=== PATIENT | female | born 1950 | race Caucasian/White ===

== ENCOUNTER → 2020-06-03 12:21 | Outpatient (CLI) | payer OTHER, SELFPAY ==
--- NOTE | ~2020-06-03 | MM_ITS ---
EXAMINATION: MM scrn diamond implant BI w timoteo HISTORY: Screening mammogram TECHNIQUE: Craniocaudal and mediolateral oblique 3-D tomosynthesis images with implant displacement a nd synthetic 2-D images were generated. Craniocaudal and mediolateral oblique views of the breasts wi thout implant displacement were obtained using full field digital mammography. CAD analysis was submi tted and interpreted. COMPARISON: 04/22/2019, 01/11/2018, 12/15/2016 bilateral implant digital screening mammogram examinatio ns BREAST PARENCHYMAL COMPOSITION: There is heterogeneously dense breast tissue, which may obscure small masses. FINDINGS: Status post bilateral augmentation mammoplasty. There are bilateral biopsy marker; history of bilateral benign breast biopsies. There is no evidence of suspicious mass, calcification, or architectural distortion to suggest malignancy in either breast . There has been no suspicious interval change. IMPRESSION: 1. No mammographic evidence of malignancy. 2. Recommend routine screening mammography in one year. BI-RADS Category 1: Negative Reviewed, dictated and finalized at location A. UCT SUPPORT REP
== END ==
PROVIDERS: PCP Family Medicine Adolescent Medicine; Visit Provider Nurse Practitioner Obstetrics & Gynecology
DX: Z12.31 Encounter for screening mammogram for malignant neoplasm of breast (principal)
CPT/HCPCS: 77063; 77067

== ENCOUNTER → 2021-09-03 12:17 | Outpatient (CLI) | payer OTHER, SELFPAY ==
--- NOTE | ~2021-09-03 | DEXA_ITS ---
Bone Density Report Name: MENDOZA MIRANDA Age: 71 Sex: Female Ethnicity: White Date of : 1950 Indication: osteopenia; monitoring treatment; hysterectomy;postmenopausal Referring Provider: VIJAY REECE Study: Bone densitometry was performed. Exam Date: September 03, 2021 Accession number: [id number] Bone Density: Region BMD T-score Z-score Classification AP Spine (L1-L4) 0.988 -0.5 1.8 Normal Femoral Neck (Left) 0.674 -1.6 0.4 Osteopenia Total Hip (Left) 0.737 -1.7 0.0 Osteopenia World Health Organization criteria for BMD impression classify patients as: Normal (T-score at or above -1.0), Osteopenia (T-score between -1.0 and -2.5), or Osteoporosis (T-score at or below -2.5). 10-year Fracture Risk: FRAX not reported because: Treated for osteoporosis Previous Exams: Region Exam Age BMD T-score BMD Change BMD Change Date g/cm2 vs Baseline vs Previous AP Spine(L1-L4) 09/03/2021 71 0.988 -0.5 0.076* 0.076* 01/28/2019 69 0.913 -1.2 Total Hip(Left) 09/03/2021 71 0.737 -1.7 0.004 0.004 01/28/2019 69 0.733 -1.7 *Denotes significance at 95% confidence level, LSC for AP Spine = 0.022 g/cm2, LSC for Total Hip = 0.027 g/cm2 Clinical Information Provided by Patient: Is being treated for osteoporosis Has used the following medications: Boniva (i.e. ibandronate), Vitamin D, Calcium, MTV Has the following medical conditions: Hysterectomy Patient maximum height was 60.0 Menopause Age: 38 No regular weight bearing exercise Drinks caffeinated beverages Onset of menses at age 9 Number of children 2 Impression: The patient has low bone mass, based on the Left Total Hip T-score. No significant bone loss was observed. Discussion: PATIENT UNDER TREATMENT WITH NO SIGNIFICANT BMD LOSS SINCE LAST EXAM. In an untreated patient, BMD typically declines with age. A lack of decline or gain is usually a sign that treatment is efficacious and fracture risk is reduced. It is important to ask patients whether they are taking their medications and to encourage continued and appropriate compliance with their osteoporosis therapies to reduce fracture risk. It is also important to review their risk factors and encourage appropriate calcium and vitamin D intakes, exercise, fall prevention and other lifestyle measures. Follow-Up: Consider a repeat BMD and Vertebral Fracture Assessment (VFA) exam in 2 years or sooner if medically necessary, to reassess this patient's status. Reported by: [facility] on 09/03/2021 1:01:00
--- NOTE | ~2021-09-03 | MM_ITS ---
EXAMINATION: MM scrn diamond implant BI w timoteo HISTORY: Screening mammogram TECHNIQUE: Craniocaudal and mediolateral oblique 3-D tomosynthesis images with implant displacement a nd synthetic 2-D images were generated. Craniocaudal and mediolateral oblique views of the breasts wi thout implant displacement were obtained using full field digital mammography. CAD analysis was submi tted and interpreted. COMPARISON: 06/03/2020, 04/22/2019, 01/11/2018 BREAST PARENCHYMAL COMPOSITION: There are scattered areas of fibroglandular density. FINDINGS: There is no evidence of suspicious mass, calcification, or architectural distortion to sugg est malignancy in either breast. There has been no suspicious interval change. IMPRESSION: 1. No mammographic evidence of malignancy. 2. Recommend routine screening mammography in one year. BI-RADS Category 1: Negative Reviewed, dictated and finalized at location A. RDIST
== END ==
PROVIDERS: PCP Family Medicine Adolescent Medicine; Visit Provider Family Medicine Adolescent Medicine
DX: Z12.31 Encounter for screening mammogram for malignant neoplasm of breast (principal); M85.88 Other specified disorders of bone density and structure, other site; M85.852 Other specified disorders of bone density and structure, left thigh
CPT/HCPCS: 77063; 77067; 77080

== ENCOUNTER → 2022-05-12 08:09 | Outpatient (CLI) | payer OTHER, SELFPAY ==
--- NOTE | ~2022-05-12 | US_ITS ---
EXAMINATION: US abdomen complete DATE: 05/12/2022 08:41 INDICATION: Early satiety, elevated liver enzymes TECHNIQUE: Multiple grayscale and Doppler ultrasound images of the abdomen were obtained. COMPARISON: CT, 11/07/2006 FINDINGS: The head and body of the pancreas are normal. The pancreatic tail is obscured by bowel gas. There is a 1.8 x 2.3 x 2.4 cm subcapsular hypoechoic area in the right hepatic lobe. The liver is ot herwise normal with normal echogenicity and echotexture. No surface nodularity. Normal hepatopetal fl ow in the main portal vein. The gallbladder is normal with no abnormal wall thickening, pericholecyst ic fluid or stones. The normal common bile duct measures 5 mm. There was no sonographic [place] sign. The visualized portions of the aorta and inferior vena cava are normal. The right kidney measures 9.2 x 4.1 x 3.8 cm. The left kidney measures 8.8 x 3.6 x 4.7 cm. The kidney s demonstrate normal parenchymal echogenicity. There is no hydronephrosis. The spleen is normal in ap pearance and measures 7.1 cm. IMPRESSION: 1. No sonographic correlate for the patient's symptoms. 2. Subcapsular hypoechoic lesion of the right hepatic lobe. Follow-up CT or MRI with contrast is sarah mmended. Reviewed, dictated and finalized at location B. ICAL MANAGER IMPRESSION: 1. No sonographic correlate for the patient's symptoms. 2. Subcapsular hypoechoic lesion of the right hepatic lobe. Follow-up CT or MRI with contrast is recommended.
== END ==
PROVIDERS: PCP Family Medicine Adolescent Medicine; Visit Provider Family Medicine Adolescent Medicine
DX: R63.4 Abnormal weight loss (principal); R68.81 Early satiety; R74.8 Abnormal levels of other serum enzymes
CPT/HCPCS: 76700

== ENCOUNTER → 2022-05-20 14:55 | Outpatient (CLI) | payer OTHER, SELFPAY ==
--- NOTE | ~2022-05-20 | CT_ITS ---
EXAMINATION: CT abdomen w con INDICATION: Liver lesion on ultrasound TECHNIQUE: Computed tomographic images of the abdomen were obtained after the administration of 100 c c of Omnipaque 350 intravenous contrast. The dose-length product (DLP) was 127.63 mGy-cm. Automated e xposure control and iterative reconstruction technique were employed. COMPARISON: Ultrasound, 05/12/2022 FINDINGS: Minimal dependent atelectasis is present in the lung bases. Bilateral breast implants are n oted. The heart size is normal. There is a 2.3 cm mass of the liver dome with interrupted peripheral nodular enhancement, consistent with a hemangioma. The liver is diffusely low in attenuation when com pared with the spleen, consistent with hepatic steatosis. The spleen, pancreas, gallbladder, adrenal glands, and kidneys are normal. There are no pathologically enlarged abdominal lymph nodes. There is no free intraperitoneal gas or evidence of bowel obstruction. There is moderate lumbar spondylosis. IMPRESSION: 1. Hemangioma of the liver corresponding to the ultrasound lesion in question. Reviewed, dictated and finalized at location F. VISION MECHANIC
[2022-05-20 15:14] LABS: Estimated Glomerular Filt Rate 54
== END ==
PROVIDERS: PCP Family Medicine Adolescent Medicine; Visit Provider Family Medicine Adolescent Medicine
DX: R74.8 Abnormal levels of other serum enzymes (principal); R93.2 Abnormal findings on diagnostic imaging of liver and biliary tract
CPT/HCPCS: 74160; Q9967

== ENCOUNTER → 2022-11-22 11:11 | Outpatient (CLI) | payer MEDICARE, SELFPAY ==
--- NOTE | ~2022-11-22 | MM_ITS ---
EXAMINATION: MM scrn diamond implant BI w timoteo HISTORY: Screening mammogram TECHNIQUE: Craniocaudal and mediolateral oblique 3-D tomosynthesis images with implant displacement a nd synthetic 2-D images were generated. Craniocaudal and mediolateral oblique views of the breasts wi thout implant displacement were obtained using full field digital mammography. CAD analysis was submi tted and interpreted. COMPARISON: 09/03/2021, 06/03/2020, 04/22/2019, 12/14/2015 BREAST PARENCHYMAL COMPOSITION: There are scattered areas of fibroglandular density. FINDINGS: There is no evidence of suspicious mass, calcification, or architectural distortion to sugg est malignancy in either breast. There has been no suspicious interval change. IMPRESSION: 1. No mammographic evidence of malignancy. 2. Recommend routine screening mammography in one year. BI-RADS Category 1: Negative Reviewed, dictated and finalized at location A.
== END ==
PROVIDERS: PCP Family Medicine Adolescent Medicine; Visit Provider Family Medicine Adolescent Medicine
DX: Z12.31 Encounter for screening mammogram for malignant neoplasm of breast (principal)
CPT/HCPCS: 77063; 77067

== ENCOUNTER 2022-12-23 10:59 | Emergency (ER) | payer MEDICARE, SELFPAY ==
--- NOTE | ~2022-12-23 | XR_ITS ---
[XR ribs LT 2V w CXR 2V ] INDICATION: Left rib pain TECHNIQUE: Frontal projection of the upper left ribs, frontal projection of the lower left ribs, obli que projection of all the left ribs, frontal inspiratory chest x-ray for interpretation. FINDINGS: There are acute left sixth, seventh and eighth rib fracture. No significant effusion. No pn eumothorax. Borderline heart size. There are no soft tissue abnormality seen. The lungs are clear. IMPRESSION: 1: Acute left sixth, seventh and eighth rib fractures. Reviewed, dictated and finalized at location []
[2022-12-23 11:09] VITALS: BP 150/67; PULSE 62; RESP 12; TEMP 37.2; O2SAT 97
[2022-12-23 11:11] VITALS: BP 150/67; PULSE 62; RESP 12; TEMP 37.2; O2SAT 97
--- NOTE | 2022-12-23 11:13 | ED.FALL ---
HPI - Fall General Chief Complaint: Fall Stated Complaint: Flank Pain Time Seen by Provider: 12/23/22 11:03 Source: patient Mode of arrival: ambulatory Limitations: no limitations History of Present Illness HPI Narrative: Patient 72-year-old female who presents with left rib pain after falling Monday. Patient states coughing and bending makes pain worse. Patient states she is still able to take a full deep breath. Denies coughing up blood. States there is bruising and it is tender to touch. Denies hitting head on fall, or pain anywhere else on the body. Denies any difficulty breathing. Related Data Allergies Allergy/AdvReac Type Severity Reaction Status Date / Time cats AdvReac Unknown Unknown Uncoded 12/20/22 13:29 Review of Systems Review of Systems: All systems reviewed & are unremarkable except as noted in HPI and below Constitutional: Constitutional: Denies body ache(s), Denies chills, Denies fatigue, Denies fever(s), Denies headache(s), Denies malaise and Denies weakness Eyes: Eyes: Denies blurry vision, Denies irritation and Denies loss of vision ENT: Denies otalgia, Denies headache(s), Denies nasal discharge, Denies sinus pain and Denies sore throat Cardiovascular: Cardiovascular: Denies chest pain, Denies irregular heart rhythm and Denies dyspnea Respiratory: Respiratory: Reports pain with cough and Denies dyspnea Gastrointestinal: Gastrointestinal: Denies abdominal pain, Denies melena, Denies hematochezia, Denies diarrhea, Denies nausea and Denies vomiting Musculoskeletal: Musculoskeletal: Denies back pain, Denies myalgias and Denies arthralgias Integumentary/Breasts: Skin/Breast: Denies pruritus and Denies rash Neurologic: Denies headache(s), Denies loss of vision and Denies weakness Psychiatric: Psychiatric: Reports no additional psychiatric complaints Endocrine: Endocrine: Denies fatigue PMFSH Surgical History Surgical History History of hysterectomy (1987) History of partial surgical removal of colon (2000) Removed section of colon for Polyp History of total right hip replacement (01/2019) Family History Family History Father Lung cancer Mother Diabetes mellitus Hypertension Sibling Hypertension Social History Social History Smoking status: Never smoker Comments At time of signature, agree with nursing past medical, surgical, social and family history. There is no relevant family history pertinent to the presenting complaint. Exam Const: General: cooperative, healthy appearing, comfortable, no acute distress and well nourished Nutritional Appearance: well nourished Orientation/consciousness: patient oriented x3 Limitations: no limitations HENMT: Head: normal to inspection, normocephalic and atraumatic Ears: hearing grossly normal bilaterally and external ears normal Face/Nose/Sinus: Normal external nose present, normal facial exam and face symmetric Face and sinus: normal facial exam and face symmetric Mouth: Yes lip normal Eyes: General: appearance normal, both eyes and all related structures Alignment and Position: alignment normal and position normal Periorbital: periorbital findings normal Eyelids: eyelids normal Pupils: Equal, round and reactive pupils present EOM: EOMs intact bilaterally Neck: Neck: normal visual inspection, full ROM and supple Chest: Chest palpation & inspection: abnormal inspection of the chest other (Ecchymosis to left mid to lower ribs ), no crepitus and tenderness rib (6-8 left) Resp: Effort & Inspection: normal respiratory effort and able to speak in complete sentences Auscultation: clear to auscultation bilaterally, no crackles, no rales, no rhonchi and no wheezes Cardio: Rate: regular rate Rhythm: regular rhythm Heart sounds: S1 normal heart sound present a
== END 2022-12-23 12:16 | disposition home or self-care (01) ==
PROVIDERS: Emergency Provider Nurse Practitioner Family; PCP Family Medicine Adolescent Medicine
DX: S22.42XA Multiple fractures of ribs, left side, initial encounter for closed fracture (principal); W19.XXXA Unspecified fall, initial encounter; Z96.641 Presence of right artificial hip joint
CPT/HCPCS: 71046; 71100; 99213; G0463

== ENCOUNTER → 2023-01-11 13:52 | Outpatient (CLI) | payer MEDICARE, SELFPAY ==
--- NOTE | ~2023-01-11 | MR_ITS ---
EXAMINATION: MR pelvis wo con DATE: 01/11/2023 14:36 INDICATION: Severe left sacral pain TECHNIQUE: Magnetic resonance imaging (MRI) of the pelvis was performed without intravenous contrast. A marker was placed over the mass. Sequences included axial, sagittal and coronal T1-weighted FSE a nd fluid sensitive FSE STIR. COMPARISON: Radiographs dated 02/25/2019 FINDINGS: Metallic magnetic field artifact associated with a right total hip arthroplasty. Osteonecrosis at the anterosuperior and superior aspect of the left femoral head with prominent marrow edema throughout t he left femoral head and neck. There is linear increased fluid signal underlying a portion of the art icular surface at the apex of the femoral head. There is subtle irregularity to the cortical margin. The combination of both findings would be consistent with early collapse of the articular surface wi th a loose fragment in situ. There is moderate sized left hip joint effusion with synovitis. There is at least moderate osteoarthritis at the left hip with additional subarticular edema-like signal suggs ge at the superior left acetabular labrum. 2 mm anterolisthesis L4 on L5 with moderate associated disc height loss. Mild disc height loss at L5- S1. Severe bilateral facet osteoarthritis at L4-L5 and L5-S1. Mild bilateral sacroiliac osteoarthriti s. No associated effusion, synovitis or erosions to suggest inflammatory sacroiliitis. The uterus is not identified and has likely been surgically resected. There is likely reactive muscular edema in th e abductor musculature between the left pubic rami and the left femoral head. No pathologically enlar ged pelvic or inguinal lymphadenopathy. IMPRESSION: 1. Osteonecrosis at the left femoral head with beginning collapse of the cephalad articular surface w ith loose fragment in situ and likely secondary moderate left hip osteoarthritis and moderate sized l ikely reactive left hip joint effusion. 2. Mild bilateral sacroiliac osteoarthritis without findings of inflammatory sacroiliitis. 3. Right total hip arthroplasty. 4. Moderate lower lumbar spondylosis. Reviewed, dictated and finalized at location A. IMPRESSION: 1. Osteonecrosis at the left femoral head with beginning collapse of the cephal ad articular surface with loose fragment in situ and likely secondary moderate left hip osteoarthritis and moderate sized likely reactive left hip joint effus ion. 2. Mild bilateral sacroiliac osteoarthritis without findings of inflammatory sa croiliitis. 3. Right total hip arthroplasty. 4. Moderate lower lumbar spondylosis.
== END ==
PROVIDERS: PCP Family Medicine Adolescent Medicine; Visit Provider Orthopaedic Surgery
DX: M87.859 Other osteonecrosis, unspecified femur (principal); M16.0 Bilateral primary osteoarthritis of hip; M47.896 Other spondylosis, lumbar region
CPT/HCPCS: 72195

== ENCOUNTER 2023-01-19 09:53 | Outpatient (CLI) | payer MEDICARE, SELFPAY ==
--- NOTE | 2023-01-19 11:01 | ECG_ITS ---
Measurements Intervals [place] Rate: 67 P: 50 MD: 149 QRS: 45 QRSD: 78 T: 47 QT: 379 QTc: 400 Interpretive Statements SINUS RHYTHM BORDERLINE ST-T WAVE ABNORMALITY- ANTERIOR LEADS BASELINE ARTIFACT- I, III, AVR, AVL, AVF, V1-V6 BORDERLINE ECG COMPARED TO ECG 01/30/2019 10:57:52 ST (T WAVE) DEVIATION NOW PRESENT Electronically Signed On 01-19-2023 11:32:13 CDT by Felix Anderson D.O.
[2023-01-19 11:36] LABS: Basophils Absolute Auto 0.1 K/mm3 (0.0-0.1); Basophils Percent Auto 0.9 % (0.2-1.2); Eosinophils Absolute Auto 0.1 K/mm3 (0-0.3); Eosinophils Percent Auto 1.2 % (0-4.4); Hematocrit 38.2 % (37.0-47.0); Hemoglobin 12.9 g/dL (12.0-15.0); Immature Granulocyte Absolute 0.01 K/mm3 (0.00-0.031); Immature Granulocyte Percent A 0.2 % (0-0.5); Lymphocytes Absolute Auto 1.73 K/mm3 (0.9-3.2); Lymphocytes Percent Auto 29.7 % (18.3-44.2); Mean Corpuscular HGB Conc 33.8 g/dl (32-36); Mean Corpuscular Hemoglobin 34.2 pg (26-34); Mean Corpuscular Volume 101.3 fl (80-100); Mean Platelet Volume 9.1 fl (7.4-10.4); Monocytes Absolute Auto 0.5 K/mm3 (0.1-0.6); Monocytes Percent Auto 8.4 % (2.6-8.5); Neutrophils Absolute Auto 3.5 K/mm3 (1.3-6.7); Neutrophils Percent Auto 59.6 % (45.5-73.1); Platelet Count Result 194 k/mm3 (150-375); Red Blood Count 3.77 M/mm3 (4.2-5.4); Red Cell Distribution Width 13.1 % (11.5-14.5); White Blood Count 5.8 K/mm3 (4.5-10.0)
[2023-01-19 11:48] LABS: Urine Cotinine NEGATIVE
[2023-01-19 11:49] LABS: Albumin Level 4.8 g/dL (3.5-5.1); Anion Gap 8 mmol/L (8-16); Blood Urea Nitrogen 10 mg/dL (7-17); Calcium 9.5 mg/dL (8.4-10.2); Carbon Dioxide 26 mmol/L (22-30); Chloride 97 mmol/L (98-107); Estimated Glomerular Filt Rate > 60; Glucose 92 mg/dL (65-110); Potassium 4.3 mmol/L (3.4-5.0); Sodium 131 mmol/L (137-145)
[2023-01-19 11:52] LABS: Hemoglobin A1C 4.8 % (<5.7)
[2023-01-19 12:13] LABS: Vitamin D 25 Hydroxy 34.5 ng/mL
== END 2023-01-19 09:54 | disposition home or self-care (01) ==
LOC: ANHSURGERY 09:58
PROVIDERS: PCP Family Medicine Adolescent Medicine; Visit Provider Orthopaedic Surgery
DX: M87.00 Idiopathic aseptic necrosis of unspecified bone (principal); Z01.818 Encounter for other preprocedural examination; R94.31 Abnormal electrocardiogram [ECG] [EKG]
CPT/HCPCS: 80048; 80307; 82040; 82306; 83036; 85025; 86850; 86900; 86901; 87081; 93005

== ENCOUNTER 2023-01-30 00:41 | Day surgery (SDC) | payer MEDICARE, SELFPAY ==
[2023-01-19 10:05] VITALS: BMI 24.7
--- NOTE | 2023-01-19 10:31 | PC.NURSE ---
Report to the Outpatient Waiting Room, entrance under the green pavilion located off [facility], at time _0600 on date ___01/30/23____. Planned Procedure Time: __0730 . Time changes happen often and if your time is changed the preop area will call you the afternoon before. - You and your visitor will be asked to self-screen and do not enter if you have any COVID symptoms. - A mask is optional within the hospital at this time. Patients may have clear liquids (water, carbonated beverages, clear teas, apple juice) until 3 hours prior to surgery with a maximum of 20 ounces. - No food from midnight until time of surgery - Infants may have breast milk until 4 hours before surgery, infant formula 6 hours prior to surgery. - Children will be allowed to drink immediately following surgery. If applicable, please bring a bottle or sippy cup to assist with drinking. Juice, water, soda, and popsicles are readily available. For infants on formula, please bring formula the day of surgery. Pacifiers are allowed. Take the following medications with a SIP of water the morning of surgery: ____GABAPENTIN,PROPRANOLOL DO NOT STOP ANY OF YOUR OTHER PRESCRIPTION MEDICATIONS PRIOR TO SURGERY ?EXCEPT THE FOLLOWING Medications to discontinue per physician ALL VITAMINS 3 DAYS PRE OP.LAST DOSE 01/26/23 Please no make-up, nail mongolian, hairspray, perfume, deodorant, or body powder the day of surgery. No jewelry (including any body piercings) or valuables the day of surgery, leave them at home. Please take a shower or bath the night before, or the morning of, surgery with an antibacterial soap. Wear comfortable, loose fitting clothing. Children are encouraged to wear pajamas. - Jewelry must be removed prior to entering the operating room. Rings and piercings that are not removed may be cut off. - The hospital will not accept responsibility for valuables. - Please leave all valuables, including medications, at home the day of surgery. If you are going home after surgery, a licensed hog driver must drive you home. - NO public transportation without another adult if you receive anesthesia. - We recommend that an adult stay with you for 24 hours following discharge. - We also recommend that you do not drive, make important decision, drink alcoholic beverages, or take any drugs that were not prescribed by your health care provider for at least 24 hours after your discharge time. Follow any additional instructions given to you from your surgeon. If you or anyone in your household have experienced Covid symptoms in the past week, please notify your surgeon or the nurse liaison at the phone number below for possible testing. VERBAL AND WRITTEN instructions given to ___PATIENT and asked if any additional questions and then verbalized understanding. Patient advised to call surgeon office or pre surgery nurse liaison [phone] if any additional questions.
[2023-01-19 10:58] VITALS: BP 147/87; PULSE 66; RESP 18; TEMP 36.7; O2SAT 97
--- NOTE | 2023-01-27 12:04 | PM.IMHP ---
H&P: HPI History of Present Illness Date/Time: 01/27/23 12:04 Chief Complaint: Stage IV avascular necrosis left hip Narrative: 72-year-old female presents today for left anterior total hip arthroplasty. She underwent total hip arthroplasty on her right hip in January of 2019 and did well with that. Over the course of last year she has been developing more and more symptoms in left hip. Predominantly over the anterior lateral aspect of the hip. She was seen in the office on 01/16 x-rays that time showed severe osteoarthritis with fragmentation of the superior femoral head. She did have an MRI scan of the hip which did show the fragmentation in the superior femoral head. There was some concern due to her symptoms about possible sacral fractures but there was none seen on the MRI scan. Patient is miserable with the pain in the left hip and feels she is ready proceed with total hip arthroplasty on the left. Review of Systems Review of Systems: All systems reviewed & are unremarkable except as noted in HPI and below PMFSH Surgical History Surgical History History of hysterectomy (1987) History of partial surgical removal of colon (2000) Removed section of colon for Polyp History of total right hip replacement (01/2019) Family History Family History Father Lung cancer Mother Diabetes mellitus Hypertension Sibling Hypertension Social History Social History Smoking status: Never smoker Additional smoking assessment comments: DENIES ANY FORM OF TOBACCO USE Alcohol intake: current Drinks per week: 10 Living arrangements: alone Spiritual care concerns: No Meds Home Medications and Allergies Home Medications Medication Instructions Recorded Confirmed Type ibandronate 150 mg tablet See Rx Instructions .Route 05/04/22 01/19/23 Rx .COMPLEX #3 tabs gabapentin 300 mg capsule 300 mg PO BID #60 caps 09/01/22 01/19/23 Rx propranolol 160 mg capsule,24 160 mg PO DAILY #90 caps 11/03/22 01/19/23 Rx hr,extended release calcium carbonate 500 mg-vitamin 1 tablet PO BID 01/02/23 01/19/23 History D3 10 mcg (400 unit) tablet (Calcium 500 + D) acetaminophen 500 mg capsule 1,000 mg PO Q6H PRN Pain 01/19/23 01/19/23 History Allergies Allergy/AdvReac Type Severity Reaction Status Date / Time cats AdvReac Unknown Difficulty Uncoded 01/19/23 10:07 Breathing Exam Narrative: 72-year-old female alert pleasant. She is 4 ft 11 and 124 lb her BMI is 25. She walks with a severe limp. She has moderate tenderness over the greater trochanter and moderate tenderness over the left sacral ala. She has normal muscle strength in all muscle groups left lower extremity. She has normal abduction strength in lateral position. She cannot fully straighten the hip while supine due to pain in the anterior lateral hip and groin. Internal rotation is to 0 external rotation to 15 both of which cause her severe pain that radiates the posterior superior iliac spine. No edema in lower extremities. 2+ dorsalis pedis And posterior tibial pulse. Skin is all normal around the hip and groin crease. 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 She is miserable with the pain and feels she is ready to proceed with total hip arthroplasty at this point. Surgical procedure as well as the risks and complications were reviewed all questions were answered and we will proceed. She will avoid aspirin ibuprofen products 1 week prior surgery. She
[2023-01-30] VITALS (17 sets, daily range): BP systolic 121–164; BP diastolic 49–95; PULSE 59–76; RESP 13–18; TEMP 35.5–37; O2SAT 91–100
--- NOTE | ~2023-01-30 | XR_ITS ---
EXAMINATION: XR surgery orthopedic DATE: 01/30/2023 11:39 INDICATION: Anterior approach left total hip arthroplasty TECHNIQUE: Single fluoroscopic image of the left hip was obtained during procedure performed by Dr. Jericho rahman. Radiologist was not present for the imaging or procedure. The amount of fluoroscopy time used during this procedure was 1.0 minutes. COMPARISON: None. FINDINGS: Single image demonstrates a noncemented left total hip arthroplasty which appears well seated in near -anatomic alignment. No fracture. Expected lucent soft tissue gas at the operative bed. IMPRESSION: 1. Expected appearance during left total hip arthroplasty. See procedure note for further detail. Reviewed, dictated and finalized at location B. IMPRESSION: 1. Expected appearance during left total hip arthroplasty. See procedure note f or further detail.
--- NOTE | ~2023-01-30 | XR_ITS ---
EXAMINATION: XR hip LT 1V w AP pelvis DATE: 01/30/2023 11:39 INDICATION: Left total hip arthroplasty TECHNIQUE: Anteroposterior and cross-table lateral views of the left hip were obtained. COMPARISON: Radiographs dated 02/25/2019 FINDINGS: Bilateral noncemented total hip arthroplasties which appear well-seated in near-anatomic alignment, u nchanged on the right and no replaced on the left. Surgical drain and expected soft tissue gas at the operative bed. No fractures. Mild osteoarthritis at the bilateral sacral iliac joints. Several phleb oliths in the pelvis. IMPRESSION: 1. Bilateral total hip arthroplasties, newly placed on the left and negative for postoperative purpos es. Reviewed, dictated and finalized at location B. IMPRESSION: 1. Bilateral total hip arthroplasties, newly placed on the left and negative fo r postoperative purposes.
[2023-01-30] MEDS: ACETAMINOPHEN 500 MG TABLET 1000 MG PO ×3 (06:12→19:55)
[2023-01-30] MEDS: LACTATED RINGERS 1,000 ML 30 ML IV CONT ×2 (06:47→11:10)
[2023-01-30] MEDS: VANCOMYCIN 750 MG/NS 250 ML BAG 250 MG IVPB (06:48)
[2023-01-30] MEDS: TRANEXAMIC ACID 1,000MG/ISO100 1,000 MG/100 ML BAG 200 MG IVPB (07:00)
[2023-01-30 07:06] LABS: Sodium 130 mmol/L (137-145)
--- NOTE | 2023-01-30 07:13 | P.PNAN_ITS ---
Anes - Initial Pre Proc Eval Procedure: Operation Date: 01/30/23 07:30 Proposed Procedures p Left Total Hip Arthroplasty, Anterior Approach - Cornelio Kat MD Date/Time: 01/30/23 07:13 Surgeon: Cornelio Kat MD Pre Op Diagnosis: AVN left hip Patient Data Age: 73 Gender: F Height: 1.51 m Weight: 55.5 kg Last Vital Signs Temp 97.1 F L 01/30/23 06:18 Pulse 62 01/30/23 06:18 Resp 16 01/30/23 06:18 BP 164/75 H 01/30/23 06:18 Pulse Ox 100 01/30/23 06:18 O2 Del Method Room Air 01/30/23 06:18 Allergies Allergy/AdvReac Type Severity Reaction Status Date / Time cats AdvReac Unknown Difficulty Uncoded 01/30/23 06:10 Breathing Home Medications Medication Instructions Recorded Confirmed Type ibandronate 150 mg tablet See Rx Instructions .Route 05/04/22 01/30/23 Rx .COMPLEX #3 tabs gabapentin 300 mg capsule 300 mg PO BID #60 caps 09/01/22 01/30/23 Rx propranolol 160 mg capsule,24 160 mg PO DAILY #90 caps 11/03/22 01/30/23 Rx hr,extended release calcium carbonate 500 mg-vitamin 1 tablet PO BID 01/02/23 01/30/23 History D3 10 mcg (400 unit) tablet (Calcium 500 + D) acetaminophen 500 mg capsule 1,000 mg PO Q6H PRN Pain 01/19/23 01/30/23 History Laboratory Tests 01/30/23 06:47 Sodium 130 L mmol/L (137-145) Patient hx anesthesia problems: none Family hx anesthesia problems: none Results Review: All pre-operative results and documents have been reviewed as part of the pre- operative evaluation. [facility], [facility] Surgical History Surgical History History of hysterectomy (1987) History of partial surgical removal of colon (2000) Removed section of colon for Polyp History of total right hip replacement (01/2019) Family History Family History Father Lung cancer Mother Diabetes mellitus Hypertension Sibling Hypertension Social History Social History Smoking status: Never smoker Additional smoking assessment comments: DENIES ANY FORM OF TOBACCO USE Alcohol intake: current Drinks per week: 10 Living arrangements: alone Spiritual care concerns: No Anes - Eval Final PreProcedure Day of Procedure 01/30/23 07:13 Patient weight: normal Heart: regular rate and rhythm Lungs: clear to auscultation Airway: Mallampati scale class III Neurological: alert and oriented Last oral intake: >/= 8 hours ASA classification: III Emergent: no Anesthetic plan: proceed Anesthesia type and monitoring: general ETT and standard monitoring Results Review: All pre-operative results and documents have been reviewed as part of the pre- operative evaluation. Informed Consent: The patient's anesthetic plan and its attendant risks and benefits were discussed with the patient/family/POA. Questions were solicited and answers provided to the satisfaction of the patient/family/POA.
--- NOTE | 2023-01-30 07:15 | WPDHPUPDATE1 ---
History and Physical Update Update Date/Time: 01/30/23 07:15 History and Physical has been reviewed, including an updated exam of the patient. There are NO changes in the patient's condition. Risks, benefits, and alternatives have been discussed and questions answered. Patient agrees to proceed with procedure.
[2023-01-30] MEDS: ceFAZolin 2 GM/D5W 50 ML 2 GM/50 ML BAG IVPB (07:39)
[2023-01-30] MEDS: ceFAZolin SODIUM 1 GM VIAL 3 GM (08:25)
[2023-01-30] MEDS: ceFAZolin SODIUM 1 GM VIAL IV PUSH (10:34)
[2023-01-30] MEDS: TRANEXAMIC ACID 1,000 MG/10 ML AMPUL 1000 MG IV PUSH (10:35)
--- NOTE | 2023-01-30 11:05 | P.OP_ITS ---
Procedure Note - Detailed Date of Procedure 01/30/23 Pre-op Diagnosis AVN left hip Post-op Diagnosis Same Procedure Performed Left total hip arthroplasty direct anterior approach Surgeon Cornelio Kat MD [employer] Supervisor Thomas Anesthesia General Description of Procedure Patient was brought to the operating room and general anesthesia was administered. She received weight based vancomycin 2 g of Ancef 1 g of tranexamic acid preoperatively. The boots were applied to the feet after application of padding to the feet and [facility] and the left hip prepped draped usual fashion. A 10 cm longitudinal incision was made starting 3 cm lateral 2 cm distal to the ASIS. Dissection was carried down to the fascia over the tensor fascia andrew which was longitudinally incised elevated off the anterior 50% of the tensor fascia andrew muscle. Interval between the rectus femoris and tensor developed and crossing branches of ascending lateral femoral circumflex vessels were ligated with suture divided. A retractor was placed anterior to the hip capsule the hip abducted internally rotated and the gluteus minimus elevated off the lateral hip capsule. Inverted T capsulotomy was performed. Femoral neck osteotomy made according to preoperative templating. The head measured to 40.5 mm in diameter. There was chondral collapse of the superior segment where she had the insufficiency fracture and underlying osteonecrosis. The remaining articular cartilage was c uretted from the acetabulum and the labrum excised. The acetabulum was medialized with a 40 mm Reamer under fluoroscopic guidance. We reamed up to 45 mm and a 45 trial was too tight to fully seat due to a 1 mm rim at the introitus of the acetabulum we carefully reamed with a 46 in the 46 trial sit tightly and fully. We impacted the 46 Biomet G7 cup and achieved full seating in a tight fit placed at 40? of abduction and anteversion such at the anterior shell was a mm under the anterior rim of the acetabulum. A single screw was placed in the ilium and the 32 inner diameter acetabular liner was placed. The femur was exposed with external rotation extension using the table hook. We did not have to release the interval between conjoined tendon and piriformis which was left intact. The femur was broached up to a size 2 we trialed and the +5 head standard neck I felt the the height was about 2 or 3 mm too tall. We calcar planed countersunk the broach another 3 mm and there was a tiny bit of wiggle on the broach the torsional testing. We broached up to a size 3 which is little bit hard the seat in there was complete torsional stability. We trialed 1 more time with the +5 and was found equal leg lengths appropriate soft tissue tension and stability. Final calcar planing was performed and we impacted the size 3 Actis stem which seated fully an excellent fit. We trialed with the +5 head which gave appropriate soft tissue tension and stability in the real +5 ceramic head was impacted on the clean and dried trunnion. Hip reduced stability reconfirmed. The capsular flaps were reapproximated superiorly with 2. Vicryl local anesthetic cocktail injected the soft tissues. The fascia repaired with running 1. Vicryl a drain in the subcu skin with 2-0 Vicryl and glue EBL was 3 cc. 100 cc given back as Cell Saver. One more g of Ancef and 1 more g of TXA were given at time wound closure. No known complications. I felt that we could allow her to be weight-bearing as tolerated based on the bone quality and fixation of the implants. She was transferred postop recovery room stable condition.
[2023-01-30] MEDS: fentaNYL CITRATE INJ (*CRX) 100 MCG/2 ML VIAL 25 MCG IV PUSH ×8 (11:20→11:43)
--- NOTE | 2023-01-30 11:20 | PM.OP ---
Procedure Note - Brief Procedure Note - Brief Date of procedure: 01/30/23 AVN left hip Procedure performed: Left anterior total hip arthroplasty Surgeon: REBECCA Erwin Findings: 73-year-old female who underwent left anterior total hip arthroplasty on 01/30. I was involved in the procedure including positioning the patient on the OR table is well as 1st assist the through the time of surgery. Total time spent was 3hours Urine output (mL): -100.0
[2023-01-30] MEDS: HYDROmorphone HCL INJ (*CRX) 1 MG/ML SYR 0.5 MG IV PUSH ×3 (11:50→12:27)
[2023-01-30] MEDS: SODIUM CHLORIDE 0.9% IV 1,000 ML 125 ML IV CONT (15:37)
[2023-01-30] MEDS: SENNA/DOCUSATE SODIUM TABLET 2 TAB PO (17:47)
[2023-01-30] MEDS: GABAPENTIN 300 MG CAPSULE PO (17:47)
[2023-01-30] MEDS: oxyCODONE HCL (*CRX) 5 MG TAB IR PO ×2 (17:47→21:16)
[2023-01-30] MEDS: ceFAZolin 1 GM/NS 50 ML 1 GM/50 ML BAG IVPB (18:36)
--- NOTE | 2023-01-30 19:05 | PC.NURSE ---
Pt arrived to floor from recovery. Pt denies pain at this time. Pt up with therapy and tolerated well. Pillows placed per provider order and written instructions were given to pt. Pt Gel packs in freezer. Pt expresses no needs at this time. Pt has been monitor for any changes in status.
[2023-01-30] MEDS: VANCOMYCIN 1,000 MG/NS 250 ML 1,000 MG/250 ML BAG 250 MG IVPB (19:55)
[2023-01-30] MEDS: FAMOTIDINE 20 MG TABLET PO (21:16)
[2023-01-31] MEDS: ceFAZolin 1 GM/NS 50 ML 1 GM/50 ML BAG IVPB ×2 (00:44→09:36)
[2023-01-31] MEDS: ACETAMINOPHEN 500 MG TABLET 1000 MG PO ×2 (00:44→05:32)
[2023-01-31] MEDS: oxyCODONE HCL (*CRX) 5 MG TAB IR PO ×3 (00:44→09:29)
[2023-01-31 02:43] VITALS: BP 128/62; PULSE 80; RESP 20; TEMP 36.6; O2SAT 99
--- NOTE | 2023-01-31 06:15 | PM.PNORT ---
Subjective Subjective Date/Time Seen: 01/31/23 06:15 Interval history: Postop day 1 patient is alert. She is afebrile vital signs are stable. Drain is out. Patient was up yesterday walking with therapy and is comfortable. Pain is well controlled. Morning labs are not done yet. Dressing is dry. Neurovascularly she is. Patient work with therapy today and discharge her home later this afternoon. Objective Data Vital Signs Vital Signs: Vital Signs - 24 hr 01/30/23 06:18 01/30/23 11:10 01/30/23 11:25 Temperature 36.2 C L 37.0 C Pulse Rate 62 64 66 Respiratory Rate 16 15 13 Blood Pressure 164/75 H 142/82 H 162/79 H Pulse Oximetry 100 100 100 Oxygen Delivery Room Air Simple Face Mask Simple Face Mask Oxygen Flow Rate 6 6 01/30/23 11:35 01/30/23 11:50 01/30/23 12:05 Temperature Pulse Rate 70 68 62 Respiratory Rate 16 14 14 Blood Pressure 155/76 H 140/68 144/82 H Pulse Oximetry 100 96 95 Oxygen Delivery Simple Face Mask Room Air Room Air Oxygen Flow Rate 6 01/30/23 12:15 01/30/23 12:20 01/30/23 12:30 Temperature Pulse Rate 66 65 Respiratory Rate 14 14 Blood Pressure 153/77 H 150/72 H Pulse Oximetry 91 99 99 Oxygen Delivery Nasal Cannula Nasal Cannula Nasal Cannula Oxygen Flow Rate 2 2 2 01/30/23 12:45 01/30/23 13:15 01/30/23 13:30 Temperature 35.8 C L 35.5 C L Pulse Rate 59 L 67 64 Respiratory Rate 13 16 16 Blood Pressure 147/74 H 137/59 L 137/55 L Pulse Oximetry 99 100 100 Oxygen Delivery Nasal Cannula Oxygen Flow Rate 2 01/30/23 14:00 01/30/23 15:00 01/30/23 15:34 Temperature 36.2 C L 36.3 C L Pulse Rate 65 68 Respiratory Rate 18 14 Blood Pressure 127/57 L 122/95 H Pulse Oximetry 100 100 Oxygen Delivery Room Air Oxygen Flow Rate 01/30/23 20:00 01/30/23 18:43 01/30/23 22:43 Temperature 36.9 C 36.4 C Pulse Rate 68 76 70 Respiratory Rate 14 16 16 Blood Pressure 121/49 L 126/58 L Pulse Oximetry 100 97 98 Oxygen Delivery Room Air Oxygen Flow Rate Intake/Output Intake/Output: Intake & Output 01/28/23 01/29/23 01/30/23 01/31/23 23:59 23:59 23:59 23:59 Intake Total 1200 50 Output Total 200 310 Balance 1000 -260 Meds/Results Medications: Active Medications Generic Name Dose Route Start Last Admin Trade Name Freq PRN Reason Stop Dose Admin Acetaminophen 1,000 mg 01/30/23 14:05 01/31/23 05:32 Acetaminophen 500 Mg Tablet PO 1,000 mg Q6HR HARVEY Administration Apixaban 2.5 mg 01/31/23 09:00 Apixaban 2.5 Mg Tablet PO Q12HR HARVEY Celecoxib 100 mg 01/31/23 09:00 Celecoxib 100 Mg Capsule PO DAILY HARVEY Cephalexin HCl 500 mg 01/31/23 12:00 Cephalexin 500 Mg Capsule PO Q6HR HARVEY Famotidine 20 mg 01/30/23 21:00 01/30/23 21:16 Famotidine 20 Mg Tablet PO 20 mg Q12HR HARVEY Administration Gabapentin 300 mg 01/30/23 17:00 01/30/23 17:47 Gabapentin 300 Mg Capsule PO 300 mg BID HARVEY Administration Cefazolin Sodium 1 gm in 50 mls @ 100 mls/hr 01/30/23 16:00 01/31/23 01:14 Ancef 1 Gm/Ns 50 Ml IVPB 01/31/23 08:29 Infused Q8H HARVEY Infusion Vancomycin HCl 1,000 mg in 250 mls @ 250 mls/hr 01/30/23 19:00 01/30/23 20:55 Vancomycin 1,000 Mg/Ns 250 Ml IVPB 01/31/23 07:59 Infused Q12H HARVEY Infusion Sodium Chloride 1,000 mls @ 125 mls/hr 01/30/23 12:58 01/30/23 21:00 Normal Saline Iv IV CONT Infused .Q8H HARVEY Infusion Miscellaneous Information 1 each 01/30/23 00:01 Propranolol La 160mg Dose Ordered. We Stock 60mg Capsules XX 03/01/23 00:00 CLARIFY HARVEY Morphine Sulfate 2 mg 01/30/23 12:58 Morphine Sulfate (*Crx) 2 Mg/Ml Inj IV PUSH Q3H PRN Pain Rated 7-10 Naloxone HCl 0.1 mg 01/30/23 12:58 Naloxone Hcl 0.4 Mg/Ml Vial IV PUSH Q2M PRN Opiate Reversal Non-Formulary Medication 160 mg 01/31/23 09:00 Propranolol PO 03/02/23 08:59 DAILY HARVEY Ondansetron HCl 4 mg 01/30/23 12:58 Ondansetron Inj 4 Mg/2 Ml
--- NOTE | 2023-01-31 06:19 | PM.DS ---
DS: Admitting Diagnosis Discharge Date 01/31 Admitting Diagnosis Left hip DJD DS: Discharge Diagnosis Discharge Diagnosis (1) Hip arthritis: Code(s): M16.10 - Unilateral primary osteoarthritis, unspecified hip Status: Acute DS: Summary Hospital Course Hospital Course: 73-year-old female underwent left anterior total hip arthroplasty on 01/30. Underwent the procedure without complications. Postoperatively she has been afebrile vital signs are stable. She is weight-bearing as tolerated and was up walking day of surgery with therapy. Pain is well controlled with scheduled Tylenol well as oxycodone 5 mg. She is on a 10 day course of Celebrex 100 mg for heterotopic bone formation prophylaxis. She is on Eliquis for DVT prophylaxis. Morning of postop day 1 she was alert comfortable. Her drain is out tender dressing is dry. Neurovascularly she is intact. She be discharged home on 01/31. She will go home with a week of Keflex as well as Senokot and MiraLax for constipation. Patient was advised to keep the leg elevated home prevent swelling. She does have a history of osteoporosis in her right have her use a walker for the 1st month. She was advised any questions or concerns she is to call the office otherwise we will see her at her appointed dates. Time Spent with Patient Time attestation: Total time spent providing and/or coordinating discharge services: DS: Data Data Completed and Pending Labs on day of discharge: Labs from last 24 hours 01/30/23 06:47 Sodium 130 L Discharge Plan Discharge Patient Disposition: Home, Self-Care Discharge Instructions: CORNELIO KAT M.D [facility], [address] [address] POST-OPERATIVE DISCHARGE INSTRUCTIONS ANTERIOR TOTAL HIP ARTHROPLASTY 1. Move toes/feet up and down every hour while awake. 2. Be up walking every hour while awake. 3. Use cane in hand opposite of side of hip surgery or walker as comfort allows. Avoid sitting in a chair unless eating, receiving visitors or using the toilet. 4. When resting, lie on back with leg elevated above heart to minimize swelling. Significant swelling could indicate a blood clot and if this occurs, call the office (or go to the ER) to have a venous ultrasound performed. 5. Wound Care: Keep dry sponge on wound for 2 weeks. Use minimal tape. 6. Follow weight bearing status as instructed. 7. May shower with dressing off. Stand Alone Forms: General Discharge Instructions Follow-up/Referrals: Cornelio Kat MD [Physician] - Keep Reg. Scheduled Appt. Discharge Medications: New acetaminophen 500 mg Tablet 1,000 mg PO Q6HR Qty: 90 0RF Eliquis 2.5 mg Tablet 2.5 mg PO Q12HR Qty: 70 0RF sennosides-docusate sodium [Senokot-S] 8.6-50 mg Tablet 2 tab-cap PO BID Qty: 60 0RF cephalexin 500 mg Capsule 500 mg PO Q6HR Qty: 28 0RF celecoxib [Celebrex] 100 mg Capsule 100 mg PO DAILY Qty: 10 0RF polyethylene glycol 3350 [Miralax] 17 gram Powder In Packet 17 g PO QAM Qty: 30 0RF oxycodone 5 mg Tablet 5 mg PO Q4HR Qty: 40 0RF Continued calcium carbonate-vitamin D3 [Calcium 500 + D] 500 mg-10 mcg (400 unit) tablet 1 tablet PO BID ibandronate 150 mg tablet See Rx Instructions .ROUTE .COMPLEX Qty: 3 3RF Dose Instruction: TAKE 1 TABLET BY MOUTH ONCE A MONTH Rx Instructions: TAKE 1 TABLET BY MOUTH ONCE A MONTH gabapentin 300 mg capsule 300 mg PO BID Qty: 60 5RF propranolol 160 mg capsule,extended release 24 hr 160 mg PO DAILY Qty: 90 1RF Discontinued acetaminophen [Tylenol Extra Strength] 500 mg Capsule 1,000 mg PO Q6H PRN (Reason: Pain)
[2023-01-31] MEDS: VANCOMYCIN 1,000 MG/NS 250 ML 1,000 MG/250 ML BAG 250 MG IVPB (06:42)
[2023-01-31 06:43] VITALS: BP 120/54; PULSE 71; RESP 18; TEMP 36.4; O2SAT 97
[2023-01-31 06:54] LABS: Basophils Absolute Auto 0.1 K/mm3 (0.0-0.1); Basophils Percent Auto 0.7 % (0.2-1.2); Hematocrit 30.6 % (37.0-47.0); Immature Granulocyte Absolute 0.03 K/mm3 (0.00-0.031); Immature Granulocyte Percent A 0.4 % (0-0.5); Lymphocytes Absolute Auto 1.56 K/mm3 (0.9-3.2); Lymphocytes Percent Auto 22.5 % (18.3-44.2); Mean Corpuscular HGB Conc 32.7 g/dl (32-36); Mean Corpuscular Hemoglobin 34.6 pg (26-34); Mean Corpuscular Volume 105.9 fl (80-100); Mean Platelet Volume 9.3 fl (7.4-10.4); Monocytes Absolute Auto 0.6 K/mm3 (0.1-0.6); Monocytes Percent Auto 9.1 % (2.6-8.5); Neutrophils Absolute Auto 4.7 K/mm3 (1.3-6.7); Neutrophils Percent Auto 67.3 % (45.5-73.1); Platelet Count Result 157 k/mm3 (150-375); Red Blood Count 2.89 M/mm3 (4.2-5.4); Red Cell Distribution Width 13.6 % (11.5-14.5); White Blood Count 6.9 K/mm3 (4.5-10.0)
[2023-01-31 07:04] LABS: Anion Gap 5 mmol/L (8-16); Blood Urea Nitrogen 11 mg/dL (7-17); Calcium 8.6 mg/dL (8.4-10.2); Carbon Dioxide 27 mmol/L (22-30); Chloride 99 mmol/L (98-107); Estimated Glomerular Filt Rate > 60; Glucose 103 mg/dL (65-110); Potassium 3.7 mmol/L (3.4-5.0); Sodium 131 mmol/L (137-145)
[2023-01-31 07:35] LABS: Hypochromasia 1+ (NORMAL); Macrocytosis 1+ (NORMAL); Platelet Estimate Adequate (Adequate)
[2023-01-31 07:36] LABS: Schistocytes None Seen (NORMAL)
[2023-01-31] MEDS: GABAPENTIN 300 MG CAPSULE PO (09:29)
[2023-01-31] MEDS: APIXABAN 2.5 MG TABLET PO (09:29)
[2023-01-31] MEDS: FAMOTIDINE 20 MG TABLET PO (09:29)
[2023-01-31] MEDS: polyethylene glycoL 3350 17 GM POWD.PACK PO (09:29)
[2023-01-31] MEDS: SENNA/DOCUSATE SODIUM TABLET 2 TAB PO (09:29)
[2023-01-31] MEDS: CELECOXIB 100 MG CAPSULE PO (09:29)
--- NOTE | 2023-01-31 10:52 | WPDANESPN ---
Anes - Prog Note Post-Op Date/Time: 01/31/23 10:52 Vital Signs: Last Vital Signs Temp 36.4 C L 01/31/23 06:43 Pulse 71 01/31/23 06:43 Resp 18 01/31/23 06:43 BP 120/54 L 01/31/23 06:43 Pulse Ox 97 01/31/23 06:43 O2 Del Method Room Air 01/30/23 20:00 O2 Flow Rate 2 01/30/23 12:45 Pain Score (VAS): 2 I/O: Intake & Output 01/30/23 01/31/23 01/31/23 23:59 07:59 15:59 Intake Total 800 50 Output Total 200 310 Balance 600 -260 Laboratory Tests 01/31/23 06:34 01/31/23 06:34 01/31/23 06:34 WBC 6.9 RBC 2.89 L Hgb 10.0 L Hct 30.6 L MCV 105.9 H MCH 34.6 H MCHC 32.7 RDW 13.6 Plt Count 157 MPV 9.3 Immature Gran % (Auto) 0.4 Neut % (Auto) 67.3 Lymph % (Auto) 22.5 Potter % (Auto) 9.1 H Eos % (Auto) 0.0 Baso % (Auto) 0.7 Lymph # (Auto) 1.56 Potter # (Auto) 0.6 Eos # (Auto) 0.0 Baso # (Auto) 0.1 Abs Immat Gran (auto) 0.03 Absolute Neuts (auto) 4.7 Absolute Nucleated RBC 0.0 Nucleated RBC % 0.0 Platelet Estimate Adequate Hypochromasia 1+ Macrocytosis 1+ Schistocytes None seen Sodium 131 L Potassium 3.7 Chloride 99 Carbon Dioxide 27 Anion Gap 5 L BUN 11 Creatinine 0.60 L Estim Creat Clear Calc Not Reportable Estimated GFR > 60 Glucose 103 Calcium 8.6 Patient Feedback: Patient satisfied with anesthetic care.
[2023-01-31 11:15] VITALS: BP 142/72; PULSE 72; RESP 16; TEMP 36.9; O2SAT 100
== END 2023-01-31 12:30 | disposition home or self-care (01) ==
LOC: ANHSURGERY 06:52 → ANH3MEDSUR 14:01
PROVIDERS: Anesthesiology; Physician Assistant Surgical; PCP Family Medicine Adolescent Medicine; Visit Provider Orthopaedic Surgery
PROC: (CPT 27130; principal; 2023-01-30 07:30)
DX: M87.852 Other osteonecrosis, left femur (principal)
CPT/HCPCS: 27130; 36415; 73501; 80048; 80307; 82040; 82306; 83036; 84295; 85025; 86850; 86900; 86901; 87081; 93005; 97110; 97116; 97161; 97165; 97530; 97535; 99199; A9270; C1713; C1776; J0171; J0690; J1100; J1170; J1885; J2270; J2405; J2704; J2795; J3010; J3370; J7030; J7040; J7120

== ENCOUNTER 2023-08-25 01:09 | Day surgery (SDC) | payer MEDICARE, SELFPAY ==
--- NOTE | 2023-08-11 15:27 | PC.NURSE ---
Addendum entered by Elise Langford RN 08/11/23 15:36: ARRIVE AT 0900 FOR A 1100 AM SURGERY CLEAR LIQUIDS TILL 0800 MORNING OF SURGERY Original Note: Report to the Outpatient Waiting Room, entrance under the green pavilion located off [facility], at time __1000 on date __08/25/23 . Planned Procedure Time: _1200 . Time changes happen often and if your time is changed the preop area will call you the afternoon before. - You and your visitor will be asked to self-screen and do not enter if you have any COVID symptoms. - A mask is optional within the hospital at this time. Patients may have clear liquids (water, carbonated beverages, clear teas, apple juice) until 3 hours prior to surgery ( 9:00 AM)with a maximum of 20 ounces. - No food from midnight until time of surgery - Infants may have breast milk until 4 hours before surgery, infant formula 6 hours prior to surgery. - Children will be allowed to drink immediately following surgery. If applicable, please bring a bottle or sippy cup to assist with drinking. Juice, water, soda, and popsicles are readily available. For infants on formula, please bring formula the day of surgery. Pacifiers are allowed. Take the following medications with a SIP of water the morning of surgery: _GABAPENTIN,PROPRANOLOL DO NOT STOP ANY OF YOUR OTHER PRESCRIPTION MEDICATIONS PRIOR TO SURGERY ?EXCEPT THE FOLLOWING Medications to discontinue per physician __ALL VITAMINS 3 DAYS PRE OP.LAST DOSE__08/21/23 Please no make-up, nail amharic, hairspray, perfume, deodorant, or body powder the day of surgery. No jewelry (including any body piercings) or valuables the day of surgery, leave them at home. Please take a shower or bath the night before, or the morning of, surgery with an antibacterial soap. Wear comfortable, loose fitting clothing. Children are encouraged to wear pajamas. - Jewelry must be removed prior to entering the operating room. Rings and piercings that are not removed may be cut off. - The hospital will not accept responsibility for valuables. - Please leave all valuables, including medications, at home the day of surgery. If you are going home after surgery, a licensed regional company hazmat tanker driver must drive you home. - NO public transportation without another adult if you receive anesthesia. - We recommend that an adult stay with you for 24 hours following discharge. - We also recommend that you do not drive, make important decision, drink alcoholic beverages, or take any drugs that were not prescribed by your health care provider for at least 24 hours after your discharge time. Follow any additional instructions given to you from your surgeon. If you or anyone in your household have experienced Covid symptoms in the past week, please notify your surgeon or the nurse liaison at the phone number below for possible testing. Telephone instructions given to __PATIENT and asked if any additional questions and then verbalized understanding. Patient advised to call surgeon office or pre surgery nurse liaison [phone] if any additional questions.
[2023-08-11 15:38] VITALS: BMI 24.8
--- NOTE | 2023-08-20 09:36 | PM.IMHP ---
H&P: HPI History of Present Illness Date/Time: 08/20/23 09:36 Chief Complaint: ONDINA Narrative: bothersome ONDINA Review of Systems Review of Systems: All systems reviewed & are unremarkable except as noted in HPI and below [facility] Surgical History Surgical History History of hysterectomy (1987) History of partial surgical removal of colon (2000) Removed section of colon for Polyp History of total left hip replacement (12/2022) History of total right hip replacement (01/2019) Family History Family History Father Lung cancer Mother Diabetes mellitus Hypertension Sibling Hypertension Social History Social History Smoking status: Never smoker Additional smoking assessment comments: DENIES ANY FORM OF TOBACCO USE Alcohol intake: current Drinks per week: 10 Living arrangements: alone Spiritual care concerns: No Meds Home Medications and Allergies Home Medications Medication Instructions Recorded Confirmed Type calcium carbonate 500 mg-vitamin 1 tablet PO BID 01/02/23 08/11/23 History D3 10 mcg (400 unit) tablet (Calcium 500 + D) acetaminophen 500 mg tablet 1,000 mg PO Q6HR #90 tabs 01/31/23 08/11/23 Rx propranolol 160 mg capsule,24 160 mg PO DAILY #90 caps 05/01/23 08/11/23 Rx hr,extended release ibandronate 150 mg tablet See Rx Instructions .Route 06/26/23 08/11/23 Rx .COMPLEX #3 tabs gabapentin 300 mg capsule See Rx Instructions .Route 08/11/23 08/11/23 History .COMPLEX ESSENTIAL TREMORS Allergies Allergy/AdvReac Type Severity Reaction Status Date / Time cats AdvReac Unknown Difficulty Uncoded 08/11/23 15:16 Breathing Exam Narrative: + urethral mobility Assessment and Plan Assessment and plan (1) ONDINA (stress urinary incontinence, female): Code(s): N39.3 - Stress incontinence (female) (male) Status: Acute Assessment and Plan: urethral sling
--- NOTE | 2023-08-25 07:15 | WPDHPUPDATE1 ---
History and Physical Update Update Date/Time: 08/25/23 07:15 History and Physical has been reviewed, including an updated exam of the patient. There are NO changes in the patient's condition. Risks, benefits, and alternatives have been discussed and questions answered. Patient agrees to proceed with procedure.
[2023-08-25 09:30] VITALS: BP 166/82; PULSE 73; RESP 16; TEMP 37.3; O2SAT 100
[2023-08-25] MEDS: LACTATED RINGERS 1,000 ML 30 ML IV CONT ×2 (09:30→12:30)
--- NOTE | 2023-08-25 10:45 | P.PNAN_ITS ---
Anes - Initial Pre Proc Eval Procedure: Operation Date: 08/25/23 11:00 Proposed Procedures p Urethral Sling - Robbi Perry MD Date/Time: 08/25/23 10:45 Surgeon: Robbi Perry MD Pre Op Diagnosis: stress incont Patient Data Age: 73 Gender: F Height: 1.52 m Weight: 56.7 kg Last Vital Signs Temp 37.3 C 08/25/23 09:30 Pulse 73 08/25/23 09:30 Resp 16 08/25/23 09:30 BP 166/82 H 08/25/23 09:30 Pulse Ox 100 08/25/23 09:30 O2 Del Method Room Air 08/25/23 09:30 Allergies Allergy/AdvReac Type Severity Reaction Status Date / Time cats AdvReac Unknown Difficulty Uncoded 08/25/23 10:33 Breathing Home Medications Medication Instructions Recorded Confirmed Type calcium carbonate 500 mg-vitamin 1 tablet PO BID 01/02/23 08/11/23 History D3 10 mcg (400 unit) tablet (Calcium 500 + D) acetaminophen 500 mg tablet 1,000 mg PO Q6HR #90 tabs 01/31/23 08/11/23 Rx propranolol 160 mg capsule,24 160 mg PO DAILY #90 caps 05/01/23 08/25/23 Rx hr,extended release ibandronate 150 mg tablet See Rx Instructions .Route 06/26/23 08/11/23 Rx .COMPLEX #3 tabs gabapentin 300 mg capsule See Rx Instructions .Route 08/11/23 08/25/23 History .COMPLEX ESSENTIAL TREMORS Patient hx anesthesia problems: none Family hx anesthesia problems: none Results Review: All pre-operative results and documents have been reviewed as part of the pre- operative evaluation. [facility] Surgical History Surgical History History of hysterectomy (1987) History of partial surgical removal of colon (2000) Removed section of colon for Polyp History of total left hip replacement (12/2022) History of total right hip replacement (01/2019) Family History Family History Father Lung cancer Mother Diabetes mellitus Hypertension Sibling Hypertension Social History Social History Smoking status: Never smoker Additional smoking assessment comments: DENIES ANY FORM OF TOBACCO USE Alcohol intake: current Drinks per week: 10 Living arrangements: alone Spiritual care concerns: No Anes - Eval Final PreProcedure Day of Procedure 08/25/23 10:45 Patient weight: normal Heart: regular rate and rhythm Lungs: decreased breath sounds Airway: Mallampati scale class II Neurological: alert and oriented Last oral intake: >/= 8 hours ASA classification: III Emergent: no Anesthetic plan: proceed Anesthesia type and monitoring: general LMA and standard monitoring Results Review: All pre-operative results and documents have been reviewed as part of the pre- operative evaluation. Informed Consent: The patient's anesthetic plan and its attendant risks and benefits were discussed with the patient/family/POA. Questions were solicited and answers provided to the satisfaction of the patient/family/POA.
[2023-08-25] MEDS: ceFAZolin 2 GM/D5W 50 ML 2 GM/50 ML BAG IVPB (11:13)
[2023-08-25] MEDS: BUPIVACAINE/EPINEPHRINE 0.5% 10 ML VIAL 30 ML INFILTRATE (11:31)
--- NOTE | 2023-08-25 11:43 | W.PM.PROC2 ---
Procedure Note - Detailed Date of Procedure 08/25/23 Pre-op Diagnosis stress incont Post-op Diagnosis Same Procedure Performed mid urethral sling cystoscopy Surgeon Robbi Perry MD Anesthesia General Indications This is a female with confirm stress urinary incontinence. She desires surgical correction. She understands the risks of bleeding, infection, injury to the urinary tract, vaginal mesh extrusion, urinary tract mesh erosion, obstructive voiding requiring a secondary procedure, hip and leg pain, dyspareunia, inability to improve overactive bladder symptoms. She agrees to proceed. Description of Procedure She was correctly identified. Informed consent obtained. She was brought the operating room. She was given appropriate anesthesia. She was given appropriate perioperative antibiotics. A time-out performed. I marked out the site of the inner thigh incisions. I anesthetized the skin and made those incisions. I anesthetized the anterior vaginal wall over the mid urethra. I made a 1 cm incision. I dissected out laterally taking great care not to injure the refilled vaginal wall. I passed the helical trocars. First on the left. Then on the right. I did this from the thigh incision towards the vaginal incision. The sling was connected to the trocars and brought out through the thigh incision. I tensioned the sling appropriately. I cut and the plastic sheaths. I then closed the incision with 2 0 Vicryl. On cystoscopy there is no tumors or surgical artifact. There was no surgical artifact in the urethra. I cut the excess sling material. Close incisions with glue. She was awakened and transferred to the PACU in stable condition. Implants Urethral sling Drains No Packing No Pathology None sent Complications No immediate complications Condition Stable Disposition PACU
[2023-08-25 11:47] VITALS: BP 154/91; PULSE 74; RESP 10; TEMP 36.4; O2SAT 100
[2023-08-25 12:00] VITALS: BP 160/90; PULSE 68; RESP 12; O2SAT 100
[2023-08-25 12:16] VITALS: BP 167/80; PULSE 98; RESP 12
[2023-08-25 12:45] VITALS: BP 170/95; PULSE 72; RESP 12
[2023-08-25 13:15] VITALS: BP 184/85; PULSE 69; RESP 12
[2023-08-25] MEDS: oxyCODONE HCL (*CRX) 5 MG TAB IR PO (13:24)
[2023-08-25] MEDS: fentaNYL CITRATE INJ (*CRX) 100 MCG/2 ML VIAL 25 MCG IV PUSH (13:24)
== END 2023-08-25 13:53 | disposition home or self-care (01) ==
PROVIDERS: PCP Family Medicine Adolescent Medicine; Visit Provider Urology
PROC: (CPT 57288; principal; 2023-08-25 11:00)
DX: N39.3 Stress incontinence (female) (male) (principal)
CPT/HCPCS: 57288; A9270; C1771; J0690; J1100; J2405; J2704; J3010; J7030; J7120

== ENCOUNTER 2024-01-13 13:06 | Emergency (ER) | payer MEDICARE, SELFPAY ==
[2024-01-13 13:10] VITALS: BP 115/73; PULSE 76; RESP 16; O2SAT 94
[2024-01-13 13:14] VITALS: BP 115/73; PULSE 83; RESP 16; TEMP 36.6; O2SAT 98
--- NOTE | 2024-01-13 13:28 | ED.GENADULT ---
HPI - General Adult General Chief complaint: Head Injury Stated complaint: glf, hematoma Time Seen by Provider: 01/13/24 13:18 History of Present Illness HPI narrative: patient is a 73-year-old female who presents emergency department with chief complaint of head injury. Patient reports she was walking her neighbor's dog and the dog tripped her she fell backwards hitting her head patient reports she had no loss of consciousness reports he had a small abrasion to back of her scalp the patient has no prior history of being on blood thinners denies being on anti-platelet therapy patient reports no nausea no change in mental status Related Data Home Medications Medication Instructions Recorded Confirmed calcium carbonate 500 mg-vitamin 1 tablet PO BID 01/02/23 12/12/23 D3 10 mcg (400 unit) tablet (Calcium 500 + D) Allergies Allergy/AdvReac Type Severity Reaction Status Date / Time cats AdvReac Unknown Difficulty Uncoded 12/12/23 13:18 Breathing Review of Systems Review of Systems: A 10 system review of systems was completed on the patient and is negative except for what is stated in the HPI. Nursing and ancillary documentation was reviewed. [facility] Surgical History Surgical History History of hysterectomy (1987) History of partial surgical removal of colon (2000) Removed section of colon for Polyp History of total left hip replacement (12/2022) History of total right hip replacement (01/2019) Family History Family History Father Lung cancer Mother Diabetes mellitus Hypertension Sibling Hypertension Social History Social History Smoking status: Never smoker Additional smoking assessment comments: DENIES ANY FORM OF TOBACCO USE Alcohol intake: current Drinks per week: 10 Living arrangements: alone Spiritual care concerns: No Exam Narrative: GENERAL: Well-appearing, well-nourished, and in no acute distress. HEAD: Normocephalic, small abrasion present in the scalp. EYES: PERRLA and EOMI. ENT: Nares clear, no rhinorrhea or epistaxis. Mucous membranes moist. NECK: Supple. CHEST: Clear to auscultation. No respiratory distress. HEART: Regular rate and rhythm. No murmur heard. Normal peripheral pulses. ABDOMEN: Soft, nontender, nondistended, normal active bowel sounds. EXTREMITIES: Normal range of motion. No edema. SKIN: Warm, dry, no rash. NEURO: No focal deficits. Alert and oriented x3. PSYCH: Normal mood and affect. Course Vital Signs Vital signs: Vital Signs Temperature 36.6 C 01/13/24 13:14 Pulse Rate 83 01/13/24 13:14 Respiratory Rate 16 01/13/24 13:14 Blood Pressure 115/73 01/13/24 13:14 Pulse Oximetry 98 01/13/24 13:14 Oxygen Delivery Room Air 01/13/24 13:14 Temperature 36.6 C 01/13/24 13:14 Pulse Rate 83 01/13/24 13:14 Respiratory Rate 16 01/13/24 13:14 Blood Pressure 115/73 01/13/24 13:14 Pulse Oximetry 98 01/13/24 13:14 Oxygen Delivery Room Air 01/13/24 13:14 Medical Decision Making MDM Narrative Medical decision making narrative: differential diagnosis includes head injury, scalp laceration the patient had no loss of consciousness is currently GCS 15 showing no signs of intracranial pathology. The patient is not on blood thinners is showing no signs of space-occupying lesion in discussion with the patient risk and benefits of CT scan were discussed the patient has opted to not do CT scan at this time. The patient's tetanus status was updated Vital Signs Vital Signs: Vital Signs Temperature 36.6 C 01/13/24 13:14 Pulse Rate 83 01/13/24 13:14 Respiratory Rate 16 01/13/24 13:14 Blood Pressure 115/73 01/13/24 13:14 Pulse Oximetry 98 01/13/24 13:14 Oxygen Delivery Room Air 12/31
[2024-01-13 13:31] VITALS: BP 106/68; PULSE 74; TEMP 36.6; O2SAT 95
--- NOTE | 2024-01-13 13:34 | PC.NURSE ---
cleaned dried blood from hair with peroxide
[2024-01-13] MEDS: TETANUS,DIPHTHERIA,AC PERTUSSIS ADULT (0.5 ML) BOOSTRIX IM (13:39)
[2024-01-13] MEDS: HYDROGEN PEROXIDE 3% SOLN(*SP) 473 ML BOTTLE (13:39)
== END 2024-01-13 14:01 | disposition home or self-care (01) ==
PROVIDERS: Emergency Provider Emergency Medicine; PCP Family Medicine Adolescent Medicine
DX: S00.01XA Abrasion of scalp, initial encounter (principal); Z23 Encounter for immunization; W01.0XXA Fall on same level from slipping, tripping and stumbling without subsequent striking against object, initial encounter; Y93.K1 Activity, walking an animal
CPT/HCPCS: 90471; 90715; 99283; A9270

== ENCOUNTER 2024-02-07 14:10 | Inpatient (IN) | payer MEDICARE, SELFPAY ==
[2024-02-07] VITALS (16 sets, daily range): BP systolic 146–186; BP diastolic 77–124; PULSE 91–126; RESP 12–25; TEMP 36.4–36.7; O2SAT 95–100; BMI 24.8
--- NOTE | ~2024-02-07 | XR_ITS ---
EXAMINATION: XR chest 1V portable DATE: 02/11/2024 18:11 INDICATION: Fever. TECHNIQUE: A single frontal view of the chest was obtained. COMPARISON: Chest single view 02/10/2024 FINDINGS: There are airspace opacities in left lower lung zone. No pleural effusion or pneumothorax. The heart size is normal. There are old healed left rib fractures. IMPRESSION: 1. Worsened airspace opacities in left lower lung zone, consistent with atelectasis versus pneumonia. Reviewed, dictated and finalized at location E. IMPRESSION: 1. Worsened airspace opacities in left lower lung zone, consistent with atelect asis versus pneumonia.
--- NOTE | ~2024-02-07 | XR_ITS ---
EXAMINATION: XR chest 1V portable DATE: 02/10/2024 10:39 INDICATION: Change in condition. Nausea and vomiting. TECHNIQUE: A single frontal view of the chest was obtained. COMPARISON: CT abdomen and pelvis 02/07/2024 FINDINGS: There is mild atelectasis at left lung base. No pleural effusion or pneumothorax. The heart size is normal. There are old healed left rib fractures. IMPRESSION: 1. Mild atelectasis at left lung base. Reviewed, dictated and finalized at location A.
--- NOTE | ~2024-02-07 | CT_ITS ---
CT abdomen pelvis w con Ordering provider: Libby King PA-C History: 74 years Female with . N/V, abnormal lfts, jaundice . Comparison: None. Technique: CT abdomen and pelvis with IV and without oral contrast. Automated exposure control and it erative reconstruction technique were employed. The dose-length product was 269.86 mGy-cm. 100 mL Omn ipaque 350 was given IV. Findings: VISUALIZED LOWER CHEST: Normal. Bilateral breast implants. UPPER ABDOMINAL ORGANS: Liver: Fat infiltration of the liver. Gallbladder: Normal. Spleen: Normal. Stomach/duodenum: Small sliding hiatus hernia. Pancreas: Normal. Adrenals: Slightly prominent left adrenal gland. Kidneys: Fullness of the renal pelvis more on the left side with no definite stones seen in the visua lized portions of the ureters PELVIC ORGANS: The bladder is normal. BOWEL AND MESENTERY: Colon: No evidence of diverticulitis.. Postoperative changes in the rectum. Minimal thickening in the wall of the ascending and transverse colon which may indicate colitis. Normal appendix. Small Bowel: Normal. No obstruction. Peritoneum/mesentery: No free air or free fluid. No mesenteric lymphadenopathy. RETROPERITONEUM: Mild atheromatous disease of the abdominal aorta. Prominent vessels in the left par aspinal area most likely: Lateral views No retroperitoneal lymphadenopathy. MUSCULOSKELETAL: Superficial soft tissues: The superficial soft tissues are normal. Bones: Age appropriate degenerative changes of the spine. Bilateral hip arthroplasty. Minimal anterol isthesis at the level of L4-L5. IMPRESSION: 1. Fat infiltration of the liver. 2. Fullness of the renal pelvis bilaterally more on the left side. No definite ureteric stones seen. 3. Thickening of the wall of the ascending and transverse colon which may indicate colitis. 4. Small sliding hiatus hernia. Reviewed, dictated and finalized at location A. IMPRESSION: 1. Fat infiltration of the liver. 2. Fullness of the renal pelvis bilaterally more on the left side. No definite ureteric stones seen. 3. Thickening of the wall of the ascending and transverse colon which may clifford narciso colitis. 4. Small sliding hiatus hernia.
--- NOTE | ~2024-02-07 | US_ITS ---
EXAMINATION: US abdomen limited DATE: 02/10/2024 14:20 INDICATION: Cirrhosis of the liver. TECHNIQUE: Multiple grayscale and Doppler ultrasound images of the abdomen were obtained. COMPARISON: CT abdomen and pelvis 02/07/24 FINDINGS: The visualized portions of the head and body of the pancreas are normal. There is diffuse h epatic steatosis. There is normal flow in main portal vein. The gallbladder is normal in size. No gal lstones or gallbladder wall thickening. There is no sonographic Alcala's sign. The common duct is nor mal and measures 4 mm. IMPRESSION: 1. Diffuse hepatic steatosis. Reviewed, dictated and finalized at location A.
--- NOTE | ~2024-02-07 | CT_ITS ---
EXAMINATION: CT brain wo con DATE: 02/11/2024 09:08 INDICATION: Altered mental status. TECHNIQUE: Computed tomography (CT) of the head was performed without intravenous contrast. The mA wa s adjusted according to patient size. Iterative reconstruction technique was employed. The dose-lengt h product was 529.67 mGy-cm. COMPARISON: None FINDINGS: There are scattered areas of low attenuation in the cerebral white matter. There is no intr acranial hemorrhage, acute infarction, or abnormal intracranial mass lesion. The ventricles are robin l in size. There is mild mucosal thickening in the paranasal sinuses. There are likely changes of ocu lar lens replacement surgeries. The mastoid air cells are normal. IMPRESSION: 1. Moderate nonspecific cerebral white matter disease, which likely represents chronic small vessel i schemic disease. Reviewed, dictated and finalized at location E. IMPRESSION: 1. Moderate nonspecific cerebral white matter disease, which likely represents chronic small vessel ischemic disease.
--- NOTE | 2024-02-07 14:29 | ED.NAVMDI ---
HPI - Nausea/Vomiting/Diarrhea General Chief complaint: Nausea/Vomiting/Diarrhea <ABENA Hancock Last Filed: 02/07/24 18:47> Stated complaint: sick for five days <ABENA Hancock Last Filed: 02/07/24 18:47> Time Seen by Provider: 02/07/24 14:17 <ABENA Hancock Last Filed: 02/07/24 18:47> Source: patient <ABENA Hancock Last Filed: 02/07/24 18:47> Mode of arrival: ambulatory <ABENA Hancock Last Filed: 02/07/24 18:47> Limitations: no limitations <ABENA Hancock Last Filed: 02/07/24 18:47> History of Present Illness HPI Narrative: Patient is a 74 y/o female who presents to the ED with c/o nausea and vomiting. Patient reports having persistent nausea and vomiting since last Monday. States she has been unable to keep down much food or drink. Feels very weak and dehydrated. Went to her primary care doctor's office today was sent here for further evaluation and IV fluids. Patient denies significant abdominal pain, fevers, diarrhea, constipation, bad food exposure, family members with similar symptoms. Patient does admit that she has had episodic periods of N/V since August. Patient is a daily drinker. She reports she drinks 1-2 rum and cokes per day. Last drank last night, was able to keep this down. Daughter at bedside reports patient drinks more than admitting, drank 2 handles of rum within 10 days. Patient denies history of withdrawal symptoms or seizures. <ABENA Hancock Last Filed: 02/07/24 18:47> Related Data Home medications: Home Medications Medication Instructions Recorded Confirmed calcium carbonate 500 mg-vitamin 1 tablet PO BID 01/02/23 02/07/24 D3 10 mcg (400 unit) tablet (Calcium 500 + D) <ABENA Hancock Last Filed: 02/07/24 18:47> Allergies/Adverse reactions: Allergies Allergy/AdvReac Type Severity Reaction Status Date / Time cats AdvReac Unknown Difficulty Uncoded 02/07/24 13:11 Breathing <ABENA Hancock Last Filed: 02/07/24 18:47> Review of Systems Review of Systems: CONSTITUTIONAL: Denies fever, chills, or sweats. GASTROINTESTINAL: see HPI. GENITOURINARY: Denies dysuria or hematuria. MUSCULOSKELETAL: Denies back pain, extremity pain, myalgia. <ABENA Hancock Last Filed: 02/07/24 18:47> All systems reviewed & are unremarkable except as noted in HPI and below <ABENA Hancock Last Filed: 02/07/24 18:47> [facility] Surgical History Surgical History: Surgical History History of hysterectomy (1987) History of partial surgical removal of colon (2000) Removed section of colon for Polyp History of total left hip replacement (12/2022) History of total right hip replacement (01/2019) <ABENA Hancock Last Filed: 02/07/24 18:47> Family History Family History: Family History Father Lung cancer Mother Diabetes mellitus Hypertension Sibling Hypertension <ABENA Hancock Last Filed: 02/07/24 18:47> Social History Social History: Social History Smoking status: Never smoker Additional smoking assessment comments: DENIES ANY FORM OF TOBACCO USE Alcohol intake: current Drinks per week: 10 Do You Feel Safe in your Home?: Yes Lack of Transportation: No Lack of Food: Never True Current Housing: I Have Housing Concerned About Future Housing: No Difficulty Paying Gas/Electric Bills: No Difficulty Paying for Meds: No Currently Unemployed: No Education: High School Diploma/GED Difficulty w/ Childcare or Family Care: No Living arrangements: alone Spiritual care concerns: No <ABENA Hancock Last Filed: 02/07/24 18
[2024-02-07] MEDS: SODIUM CHLORIDE 0.9% IV 1,000 ML 999 ML IV CONT ×2 (14:37→15:49)
[2024-02-07] MEDS: ONDANSETRON INJ 4 MG/2 ML VIAL IV PUSH (14:37)
[2024-02-07 14:49] LABS: Basophils Percent Auto 0.9 % (0.2-1.2); Eosinophils Percent Auto 0.2 % (0-4.4); Hematocrit 34.7 % (37.0-47.0); Hemoglobin 12.4 g/dL (12.0-15.0); Immature Granulocyte Absolute 0.02 K/mm3 (0.00-0.031); Immature Granulocyte Percent A 0.5 % (0-0.5); Immature Platelet Fraction Pct 8.5 % (0.9-11.2); Lymphocytes Absolute Auto 0.97 K/mm3 (0.9-3.2); Mean Corpuscular HGB Conc 35.7 g/dl (32-36); Mean Corpuscular Hemoglobin 36.7 pg (26-34); Mean Corpuscular Volume 102.7 fl (80-100); Mean Platelet Volume 10.3 fl (7.4-10.4); Monocytes Absolute Auto 0.3 K/mm3 (0.1-0.6); Monocytes Percent Auto 6.6 % (2.6-8.5); Neutrophils Absolute Auto 2.9 K/mm3 (1.3-6.7); Neutrophils Percent Auto 68.8 % (45.5-73.1); Platelet Count Result 117 k/mm3 (150-375); Red Blood Count 3.38 M/mm3 (4.2-5.4); Red Cell Distribution Width 13.3 % (11.5-14.5); White Blood Count 4.2 K/mm3 (4.5-10.0)
[2024-02-07 14:54] LABS: Alanine Aminotransferase 57 U/L (6-35); Albumin Level 4.6 g/dL (3.5-5.1); Alkaline Phosphatase 112 U/L (38-126); Anion Gap 25 mmol/L (4-12); Aspartate Amino Transferase 212 U/L (14-36); Bilirubin,Total 4.3 mg/dL (0.2-1.3); Blood Urea Nitrogen 4 mg/dL (7-17); Calcium 8.7 mg/dL (8.4-10.2); Carbon Dioxide 19 mmol/L (22-30); Chloride 83 mmol/L (98-107); Estimated CRCL calculation 57 ml/min; Estimated Glomerular Filt Rate > 60; Glucose 85 mg/dL (65-110); Lipase 81 U/L (23-300); Magnesium 1.3 mg/dL (1.6-2.3); Potassium 3.5 mmol/L (3.4-5.0); Sodium 127 mmol/L (137-145)
[2024-02-07] MEDS: MAGNESIUM SULF 2 GM/WATER 50ML 2 GM/50 ML BAG IVPB (15:49)
[2024-02-07 16:11] LABS: Glucose Point of Care 74 mg/dl (65-105)
[2024-02-07 16:31] LABS: Add Urine Microscopic? NO; Appearance Urine Clear (Clear); Bilirubin Urine Negative (Negative); Blood Urine Negative (Negative); Color Urine Yellow (Yellow); Glucose Urine UA Negative (Negative); Ketones Urine 1+ mg/dL (Negative); Leukocyte Esterase Ur Negative LEU/UL (Negative); Nitrate Urine Negative (Negative); Protein Urine Negative (Negative); Specific Grav Ur 1.014 (1.001-1.035)
[2024-02-07 16:52] LABS: Influenza A QL RT-PCR Negative (Negative); Influenza B QL RT-PCR Negative (Negative); RSV RNA, RT-PCR Negative (Negative); SARS-CoV-2 RNA PCR Negative (Negative)
[2024-02-07] MEDS: THIAMINE HCL 200 MG/2 ML VIAL 100 MG IV PUSH (16:53)
[2024-02-07] MEDS: LORazepam INJ (*CRX) 2 MG/ML VIAL 1 MG IV PUSH ×3 (16:53→20:42)
[2024-02-07 17:02] LABS: Ethanol 100 mg/dL (<10)
[2024-02-07] MEDS: DEXTROSE 50% 25 GM/50 ML SYRINGE IV PUSH (17:11)
[2024-02-07] MEDS: SODIUM CHLORIDE 0.9% IV 1,000 ML 100 ML IV CONT (18:59)
[2024-02-07] MEDS: PANTOPRAZOLE SODIUM IV 40 MG VIAL IV PUSH (18:59)
--- NOTE | 2024-02-07 20:21 | PC.NURSE ---
blood sugar is 96 at this time
[2024-02-07 20:22] LABS: Glucose Point of Care 96 mg/dl (65-105)
--- NOTE | 2024-02-07 20:43 | PM.IMHP ---
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 Patient is a poor historian during intake she is unable to give reliable HPI, due to patient's overtly tremulous condition, along with mild agitation, most of HPI is gathered by records, nursing staff, and notes. Patient does admit she is currently going through a breakup after 25 years, and she reports she is very sad and admits she has been drinking more than she normally does. During this interview she reports to me that she has a 10 and 12-year-old at home that she must get home to, she speaks about a that she is not able to name reporting that they are trying to care for the children. She is unable to elaborate the children's name or where they are. During interview pt did admit to being suicidal at times, she denied any plans, she stated her break-up has been awful after 25 years. Per chart review Patient was brought in to the ED with complaints of ongoing history of nausea vomiting reported she was not able to keep food or drink down, at that time she admitted to daily alcohol use. Initial ED workup, revealed patient was hypertensive, tachycardic in no acute distress CBC with WBC of 4.2, stable H&H, Platelets 117. CMP with hyponatremia at 127. Chloride low at 83. Bicarb 19, anion gap of 25. Stable kidney function. Stable blood glucose. Magnesium low 1.3. IV replacement ordered. Total bilirubin elevated to 4.3. AST 212, ALT 57. Alk-phos within normal limits. Lipase 81. UA with 1+ ketones, no signs of infection. Viral swabs negative. CT scan of abdomen /pelvis obtained and showing fatty infiltration of liver, no obvious masses or obstruction. Shows possible colitis changes, no other significant abnormalities. Patient has not had any bowel changes, diarrhea, constipation. Low suspicion for acute infectious colitis. Case was discussed with Dr. Tabares for elevated LFTs and hyper bili. Review of Systems Review of Systems: ROS unobtainable: Yes unobtainable due to medical condition [facility] Surgical History Surgical History History of hysterectomy (1987) History of partial surgical removal of colon (2000) Removed section of colon for Polyp History of total left hip replacement (12/2022) History of total right hip replacement (01/2019) Family History Family History Father Lung cancer Mother Diabetes mellitus Hypertension Sibling Hypertension Social History Social History Smoking status: Never smoker Additional smoking assessment comments: DENIES ANY FORM OF TOBACCO USE Alcohol intake: current Drinks per week: 10 Do You Feel Safe in your Home?: Yes Lack of Transportation: No Lack of Food: Never True Current Housing: I Have Housing Concerned About Future Housing: No Difficulty Paying Gas/Electric Bills: No Difficulty Paying for Meds: No Currently Unemployed: No Education: High School Diploma/GED Difficulty w/ Childcare or Family Care: No Living arrangements: alone Spiritual care concerns: No Meds Home Medications and Allergies Home Medications Medication Instructions Recorded Confirmed Type calcium carbonate 500 mg-vitamin 1 tablet PO BID 01/02/23 02/07/24 History D3 10 mcg (400 unit) tablet (Calcium 500 + D) hydrocodone 5 mg-acetaminophen 325 1 tablet PO Q6H PRN pain #20 tabs 08/25/23 02/07/24 Rx mg tablet gabapentin 300 mg capsule See Rx Instructions .Route 09/26/23 02/07/24 Rx .COMPLEX #180 caps hydrocortisone 2.5 % topical cream 1 applic RECTAL QHS PRN 12/12/23 02/07/24 Rx
--- NOTE | 2024-02-07 21:46 | PC.NURSE ---
pt is hallucinating and attempted to get out of bed. bed alarm applied. pt was wet so this RN changed the linens, the pt gown, and put on a depends
--- NOTE | 2024-02-07 22:30 | ADMGEN ---
This patient, Eli Dominguez, was admitted to Intensive Care Unit-11. Patient/family oriented to hospital policies and general routines including ID bracelet, bed and alarms, visiting hours, pain management, procedures, bathroom and other care routines, personal items, smoking policy, room service/diet, and visiting hours. Information on how to activate the Rapid Response Team has been discussed. Patient/Family are encouraged to report perceived risks to care and to ask questions if they do not understand what they are told or what they should do.
[2024-02-07] MEDS: dexmedeTOMIDine 400 MCG/100 ML 400 MCG/100 ML BAG IV CONT (22:51)
[2024-02-07] MEDS: THIAMINE 500 MG/NS 100 ML 500 MG/100 ML BAG 200 MG IVPB (23:00)
--- NOTE | 2024-02-07 23:14 | ECG_ITS ---
Test Date: 2024-02-07 23:23:02 Measurements Intervals [place] Rate: 92 P: 43 TN: 127 QRS: 59 QRSD: 80 T: 55 QT: 402 QTc: 499 Interpretive Statements SINUS RHYTHM ST DEVIATION AND MODERATE T-WAVE ABNORMALITY, CONSIDER ANTERIOR ISCHEMIA [-0.1+ mV T WAVE IN V3/V4] ABNORMAL ELECTROCARDIOGRAM WARNING: DATA QUALITY MAY AFFECT INTERPRETATION No previous ECG available for comparison Electronically Signed On 02-08-2024 07:21:48 CDT by Bob Medina M.D.
[2024-02-08] VITALS (21 sets, daily range): BP systolic 77–143; BP diastolic 56–109; PULSE 88–128; RESP 16–23; TEMP 36.2–37.3; O2SAT 93–100
[2024-02-08 00:05] LABS: Lactic Acid Reflex 1.2 mmol/L (0.7-2.0)
[2024-02-08 00:05] LABS: Anion Gap 12 mmol/L (4-12); Blood Urea Nitrogen 2 mg/dL (7-17); Calcium 7.3 mg/dL (8.4-10.2); Carbon Dioxide 26 mmol/L (22-30); Chloride 92 mmol/L (98-107); Estimated CRCL calculation 57 ml/min; Estimated Glomerular Filt Rate > 60; Glucose 93 mg/dL (65-110); Phosphorus 2.7 mg/dL (2.5-4.5); Potassium 2.9 mmol/L (3.4-5.0); Sodium 130 mmol/L (137-145)
[2024-02-08 00:25] LABS: Glucose Point of Care 92 mg/dl (65-105)
[2024-02-08] MEDS: MAGNESIUM SULF 2 GM/WATER 50ML 2 GM/50 ML BAG IVPB (00:47)
[2024-02-08 01:11] LABS: Folic Acid 3.6 ng/mL (2.76->20)
[2024-02-08] MEDS: POTASSIUM CHLORIDE INJ 40 MEQ in SODIUM CHLORIDE 0.9% IV 500 ML 130 MEQ IVPB (01:58)
[2024-02-08] MEDS: SODIUM CHLORIDE 0.9% IV 1,000 ML 100 ML IV CONT ×2 (04:59→15:40)
[2024-02-08 05:03] LABS: MRSA (PCR) NOT DETECTED (NOT DETECTE)
[2024-02-08] MEDS: chlordiazePOXIDE (*CRX) 25 MG CAPSULE 50 MG PO ×3 (05:34→17:11)
--- NOTE | 2024-02-08 05:41 | PC.NURSE ---
Patient woke up, able to answer questions appropriately, CIWAA of 4. Precedex still off at this time. Librium given. Spoke with Dr. Fairbanks, change Thiamine to 100mcg PO Daily.
[2024-02-08] MEDS: PANTOPRAZOLE SODIUM IV 40 MG VIAL IV PUSH (07:51)
[2024-02-08] MEDS: THIAMINE HCL 100 MG TABLET PO (07:51)
--- NOTE | 2024-02-08 08:31 | P.CONGI_ITS ---
I, Jian Martel MD, have provided a substantive portion of the care of this patient and discussed the patient with my Nurse Practitioner. I have reviewed any new relevant radiographic and laboratory results including medications. I agree with her documentation as noted below.?I personally performed the medical decision making and much of the history and exam for this encounter. briefly, she is an alcoholic here with nausea, vomiting and anorexia. Found to have alcoholic ketoacidosis, + ETOH, bili 4, platelets 80, inr 1, macrocytic anemia and alcoholic withdrawal signs. Admitted to ICU for monitor and treatment. Continue management in ICU with ciwa protocol, banana bag, hydration, correct abnormal lytes. She needs to stop drinking and probably AA referral. Will follow along. Assessment and Plan Assessment and plan (1) Alcoholic hepatitis: Qualifiers: Ascites presence: without ascites Qualified Code(s): K70.10 - Alcoholic hepatitis without ascites Code(s): K70.10 - Alcoholic hepatitis without ascites Status: Acute (2) Abnormal LFTs: Code(s): R79.89 - Other specified abnormal findings of blood chemistry Status: Acute (3) Hepatic steatosis: Code(s): K76.0 - Fatty (change of) liver, not elsewhere classified Status: Acute (4) Nausea and vomiting: Qualifiers: Vomiting type: unspecified Qualified Code(s): R11.2 - Nausea with vomiting, unspecified Code(s): R11.2 - Nausea with vomiting, unspecified Status: Acute (5) Personal history of colonic polyps: Code(s): Z86.010 - Personal history of colonic polyps Status: Acute (6) ETOH abuse: Code(s): F10.10 - Alcohol abuse, uncomplicated Status: Acute (7) Macrocytic anemia: Code(s): D53.9 - Nutritional anemia, unspecified Status: Acute Plan 1) Alcoholic hepatitis / abnormal LFTs/ hepatic steatosis /jaundice / scleral icterus/ETOH abuse/Nausea and vomiting: CT on admission showed fatty liver EGD. LFTs trending down since admission showing total bilirubin 4.3-->4.0, AST 212-->112, ALT 57-->38, alk-phos 112-->86. patient with history of elevated LFTs since April of 2022, alkaline phosphatase has remained normal. ETOH 100, INR 1.1, albumin 4.6 , lipase normal, acetaminophen level normal. Platelets trending down since admission 118-->88. Maddrey's score 3.5-good prognosis. Patient states that she drinks 2-3 rum and cokes per day but according to ER d ocumentation patient's daughter feels as if she is drinking much more than she admits. Patient denies any recent medication Roseanne changes or antibiotic treatments. patient admits to episodes of nausea and vomiting prior to admission but states that it only occurred after eating. Denies any nausea c urrently with p.r.n. antiemetics. Patient with mild jaundice and scleral icterus. DDX: acute alcoholic hepatitis versus cirrhosis versus other hepatic etiology * liver workup ordered including fibrosis panel * given low Maddrey's score no indication for steroids * primary care team to continue monitoring * Alcohol cessation recommended * continue CIWA protocol * continue supportive care 2) Macrocytic anemia/pancytopenia: Labs today show WBC 3, HGB 11, HCT 32, MCV 106, platelets 88. B12 and folate normal. no signs of active GI bleeding. Concerns for underlying cirrhosis but pancytopenia may be secondary to problem 1. * primary care team to continue monitoring H&H and transfuse as needed to keep HGB > 7 * liver workup pending 3) Abnormal imaging digestive -colitis/ Personal history of colon polyps:
--- NOTE | 2024-02-08 08:31 | WPDGICN ---
Assessment and Plan Assessment and plan (1) Alcoholic hepatitis: Qualifiers: Ascites presence: without ascites Qualified Code(s): K70.10 - Alcoholic hepatitis without ascites Code(s): K70.10 - Alcoholic hepatitis without ascites Status: Acute (2) Abnormal LFTs: Code(s): R79.89 - Other specified abnormal findings of blood chemistry Status: Acute (3) Hepatic steatosis: Code(s): K76.0 - Fatty (change of) liver, not elsewhere classified Status: Acute (4) Nausea and vomiting: Qualifiers: Vomiting type: unspecified Qualified Code(s): R11.2 - Nausea with vomiting, unspecified Code(s): R11.2 - Nausea with vomiting, unspecified Status: Acute (5) Personal history of colonic polyps: Code(s): Z86.010 - Personal history of colonic polyps Status: Acute (6) ETOH abuse: Code(s): F10.10 - Alcohol abuse, uncomplicated Status: Acute (7) Macrocytic anemia: Code(s): D53.9 - Nutritional anemia, unspecified Status: Acute Plan 1) Alcoholic hepatitis / abnormal LFTs/ hepatic steatosis /jaundice / scleral icterus/ETOH abuse/Nausea and vomiting: CT on admission showed fatty liver EGD. LFTs trending down since admission showing total bilirubin 4.3-->4.0, AST 212-->112, ALT 57-->38, alk-phos 112-->86. patient with history of elevated LFTs since April of 2022, alkaline phosphatase has remained normal. ETOH 100, INR 1.1, albumin 4.6 , lipase normal, acetaminophen level normal. Platelets trending down since admission 118-->88. Maddrey's score 3.5-good prognosis. Patient states that she drinks 2-3 rum and cokes per day but according to ER documentation patient's daughter feels as if she is drinking much more than she admits. Patient denies any recent medication Roseanne changes or antibiotic treatments. patient admits to episodes of nausea and vomiting prior to admission but states that it only occurred after eating. Denies any nausea currently with p.r.n. antiemetics. Patient with mild jaundice and scleral icterus. DDX: acute alcoholic hepatitis versus cirrhosis versus other hepatic etiology liver workup ordered including fibrosis panel given low Maddrey's score no indication for steroids primary care team to continue monitoring Alcohol cessation recommended continue CIWA protocol continue supportive care 2) Macrocytic anemia/pancytopenia: Labs today show WBC 3, HGB 11, HCT 32, MCV 106, platelets 88. B12 and folate normal. no signs of active GI bleeding. Concerns for underlying cirrhosis but pancytopenia may be secondary to problem 1. primary care team to continue monitoring H&H and transfuse as needed to keep HGB > 7 liver workup pending 3) Abnormal imaging digestive -colitis/ Personal history of colon polyps: Patient with history of a large rectal polyp surgically removed in 2000. last colonoscopy 11/16/2018 showed internal hemorrhoids but was otherwise a normal postoperative colonoscopy. CT on admission showed thickening of the ascending and transverse colon wall. patient denies any abdominal pain or change in bowel habits prior to admission. No leukocytosis. primary care team to continue monitoring patient is due for a repeat screening colonoscopy, which we can arrange as outpatient during her follow-up visit Thank you very much for allowing me share in the care this very nice patient. This report may have been done utilizing a voice recognition system. Attempts have been made to correct errors. However, there may be uncorrected grammatical, spelling, and recognition errors present. GI Consult Note Consult date/time: 02/08/24 08:31 Reason for consult: alcoholic hepatitis HPI: This is a pleasant 74 year old female with a past medical surgical history of depression, ETOH abuse, partial colon resection, hysterectomy, and bilateral hip replacement she presented to the ER room 02/08/2024 with complaints
[2024-02-08] MEDS: LACTATED RINGERS 1,000 ML 1000 ML IV CONT (08:41)
[2024-02-08 09:04] LABS: Basophils Percent Auto 0.4 % (0.2-1.2); Eosinophils Percent Auto 1.5 % (0-4.4); Hematocrit 31.9 % (37.0-47.0); Hemoglobin 10.9 g/dL (12.0-15.0); Immature Granulocyte Absolute 0.01 K/mm3 (0.00-0.031); Immature Granulocyte Percent A 0.4 % (0-0.5); Immature Platelet Fraction Pct 7.3 % (0.9-11.2); Lymphocytes Absolute Auto 0.55 K/mm3 (0.9-3.2); Lymphocytes Percent Auto 20.4 % (18.3-44.2); Mean Corpuscular HGB Conc 34.2 g/dl (32-36); Mean Corpuscular Hemoglobin 36.1 pg (26-34); Mean Corpuscular Volume 105.6 fl (80-100); Monocytes Absolute Auto 0.3 K/mm3 (0.1-0.6); Monocytes Percent Auto 9.6 % (2.6-8.5); Neutrophils Absolute Auto 1.8 K/mm3 (1.3-6.7); Neutrophils Percent Auto 67.7 % (45.5-73.1); Platelet Count Result 88 k/mm3 (150-375); Red Blood Count 3.02 M/mm3 (4.2-5.4); Red Cell Distribution Width 13.7 % (11.5-14.5); White Blood Count 2.7 K/mm3 (4.5-10.0)
[2024-02-08 09:14] LABS: INR 1.1; Prothrombin Time 14.6 Seconds (11.1-14.7)
[2024-02-08 09:17] LABS: Acetaminophen < 10 ug/mL (10-30)
[2024-02-08 09:20] LABS: Alanine Aminotransferase 38 U/L (6-35); Albumin Level 3.2 g/dL (3.5-5.1); Alkaline Phosphatase 86 U/L (38-126); Anion Gap 9 mmol/L (4-12); Aspartate Amino Transferase 112 U/L (14-36); Calcium 7.1 mg/dL (8.4-10.2); Carbon Dioxide 25 mmol/L (22-30); Chloride 99 mmol/L (98-107); Estimated CRCL calculation 57 ml/min; Estimated Glomerular Filt Rate > 60; Glucose 85 mg/dL (65-110); Magnesium 2.1 mg/dL (1.6-2.3); Phosphorus 2.4 mg/dL (2.5-4.5); Potassium 3.6 mmol/L (3.4-5.0); Sodium 133 mmol/L (137-145)
[2024-02-08 09:28] LABS: Creatine Kinase 58 U/L (30-135)
--- NOTE | 2024-02-08 09:29 | WPDCNINT ---
Assessment and Plan Assessment and plan (1) Alcohol withdrawal: Qualifiers: Complication of substance-induced condition: with unspecified complication Qualified Code(s): F10.939 - Alcohol use, unspecified with withdrawal, unspecified Code(s): F10.939 - Alcohol use, unspecified with withdrawal, unspecified Status: Acute Assessment and Plan: Patient has recently been drinking more because of a break-up of 25 years. Presented the primary care doctor's office with nausea, vomiting, dehydration. Decreased oral intake for solids and liquids -in the ER she was found to have ketoacidosis with anion gap metabolic acidosis likely related to alcoholism, received IV fluids with resolution of metabolic acidosis -patient was given multiple doses of Ativan in the ER and was transferred to the ICU for Precedex infusion -she was started briefly on Precedex infusion but has been off since midnight -continue thiamine, folic acid and maintenance IV fluids -coags are within normal limits -CK levels are normal (2) Ketoacidosis due to acute alcohol intoxication: Code(s): E87.29 - Other acidosis; F10.929 - Alcohol use, unspecified with intoxication, unspecified Status: Acute Assessment and Plan: Ketoacidosis likely related to alcohol intoxication/abuse -adequate IV fluids given in the ER -continue maintenance IV fluids -good urine output -will give additional 500 IV fluid bolus this morning be ICU -metabolic acidosis has resolved (3) Electrolyte imbalance: Code(s): E87.8 - Other disorders of electrolyte and fluid balance, not elsewhere classified Status: Acute Assessment and Plan: Hypokalemia, potassium has normalized after repletion Hypomagnesia, magnesium has normalized repletion Hyperphosphatemia, will replace (4) Transaminitis: Code(s): R74.01 - Elevation of levels of liver transaminase levels Status: Acute Assessment and Plan: Elevated LFTs and bilirubin likely related to alcohol abuse, hemoconcentration due to hypovolemia -patient received adequate amount of IV fluids LFTs are trending down, bilirubin improving -likely related to alcoholic hepatitis -GI was consulted on admission -02/06: CT scan of the abdomen and pelvis showed fatty infiltration of the liver, fullness of the renal pelvis bilaterally more on the left side, no definitive ureteric stone seen. Thickening of the wall of the ascending and transverse colon which may indicate colitis. Small sliding hiatal hernia. (5) Suicidal ideations: Code(s): R45.851 - Suicidal ideations Status: Acute Assessment and Plan: After reviewing the records patient was suicidal at the primary care doctor's office on 02/07/2024 and also in the H and P she was noted to have suicidal ideations. -patient not suicidal at this time -will start suicidal precautions -bedside sitter -once she is medically cleared will have care coordination and crisis management evaluate the patient (6) Depression: Qualifiers: Depression Type: reactive depression Qualified Code(s): F32.9 - Major depressive disorder, single episode, unspecified Code(s): F32.A - Depression, unspecified Status: Acute Assessment and Plan: Patient on sertraline at home, also propanolol Will restart once LFTs improve Plan DVT prophylaxis: SCDs no chemoprophylaxis secondary to thrombocytopenia Stress ulcer prophylaxis: Protonix Nutrition: Clear liquid diet Code Status: Full code Critical Care Time Spent: 48 minutes Due to a high probability of clinically significant, life threatening deterioration, the patient required my highest level of preparedness to intervene emergently and I personally spent this critical care time directly and personally managing the patient. This critical care time included obtaining a history; examining the patient; pulse oximetry; ordering and review of studies; arranging urgent treatmen
[2024-02-08 09:55] LABS: Blood Urea Nitrogen < 2 mg/dL (7-17)
[2024-02-08 10:17] LABS: Hepatitis B Surface Antigen Negative (Negative)
[2024-02-08 10:23] LABS: HAV RESULT Negative (Negative); Hepatitis B Core IgM Result Negative (Negative)
[2024-02-08 10:35] LABS: Hepatitis C Virus Antibody Negative (Negative)
[2024-02-08] MEDS: POTASSIUM/PHOSPHORUS/SODIUM 1.5 GM PACKET 1 PACKET PO (11:25)
[2024-02-08 11:45] LABS: Glucose Point of Care 92 mg/dl (65-105)
[2024-02-08 12:11] LABS: Iron 100 ug/dL (37-170)
[2024-02-08 12:30] LABS: Percent Iron Saturation 64 % (20-50)
[2024-02-08 16:46] LABS: Glucose Point of Care 90 mg/dl (65-105)
[2024-02-08] MEDS: LORazepam INJ (*CRX) 2 MG/ML VIAL IV PUSH (20:30)
[2024-02-09] VITALS (7 sets, daily range): BP systolic 110–151; BP diastolic 58–88; PULSE 106–121; RESP 18–30; TEMP 37.1–37.5; O2SAT 96–100
[2024-02-09] MEDS: chlordiazePOXIDE (*CRX) 25 MG CAPSULE 50 MG PO ×5 (00:13→23:21)
[2024-02-09] MEDS: LORazepam INJ (*CRX) 2 MG/ML VIAL IV PUSH (00:35)
[2024-02-09] MEDS: SODIUM CHLORIDE 0.9% IV 1,000 ML 100 ML IV CONT ×2 (02:00→12:05)
[2024-02-09 04:22] LABS: Basophils Percent Auto 0.8 % (0.2-1.2); Eosinophils Absolute Auto 0.1 K/mm3 (0-0.3); Hematocrit 30.8 % (37.0-47.0); Hemoglobin 10.7 g/dL (12.0-15.0); Immature Granulocyte Absolute 0.01 K/mm3 (0.00-0.031); Immature Granulocyte Percent A 0.4 % (0-0.5); Immature Platelet Fraction Pct 7.7 % (0.9-11.2); Lymphocytes Absolute Auto 0.81 K/mm3 (0.9-3.2); Lymphocytes Percent Auto 30.5 % (18.3-44.2); Mean Corpuscular HGB Conc 34.7 g/dl (32-36); Mean Corpuscular Volume 106.6 fl (80-100); Mean Platelet Volume 10.9 fl (7.4-10.4); Monocytes Absolute Auto 0.2 K/mm3 (0.1-0.6); Monocytes Percent Auto 8.3 % (2.6-8.5); Neutrophils Absolute Auto 1.5 K/mm3 (1.3-6.7); Red Blood Count 2.89 M/mm3 (4.2-5.4); Red Cell Distribution Width 13.4 % (11.5-14.5); White Blood Count 2.7 K/mm3 (4.5-10.0)
[2024-02-09 04:33] LABS: Alanine Aminotransferase 36 U/L (6-35); Albumin Level 3.2 g/dL (3.5-5.1); Alkaline Phosphatase 87 U/L (38-126); Anion Gap 11 mmol/L (4-12); Aspartate Amino Transferase 115 U/L (14-36); Bilirubin,Total 3.9 mg/dL (0.2-1.3); Calcium 7.5 mg/dL (8.4-10.2); Carbon Dioxide 25 mmol/L (22-30); Chloride 100 mmol/L (98-107); Estimated CRCL calculation 57 ml/min; Estimated Glomerular Filt Rate > 60; Glucose 88 mg/dL (65-110); Magnesium 1.6 mg/dL (1.6-2.3); Phosphorus 2.4 mg/dL (2.5-4.5); Potassium 2.9 mmol/L (3.4-5.0); Sodium 136 mmol/L (137-145)
[2024-02-09 04:38] LABS: Blood Urea Nitrogen < 2 mg/dL (7-17)
[2024-02-09 04:41] LABS: Hypochromasia 1+; Platelet Count Result 76 k/mm3 (150-375); Platelet Estimate Decreased (Adequate)
[2024-02-09 04:42] LABS: Anisocytosis 1+; Schistocytes None Seen; Smudge Cells PRESENT
[2024-02-09] MEDS: MAGNESIUM SULF 2 GM/WATER 50ML 2 GM/50 ML BAG IVPB (10:00)
[2024-02-09] MEDS: POTASSIUM CHLORIDE 20 MEQ ER TABLET 40 MEQ PO (10:00)
[2024-02-09] MEDS: POTASSIUM CHLORIDE INJ 40 MEQ in SODIUM CHLORIDE 0.9% IV 500 ML 130 MEQ IVPB (10:00)
[2024-02-09] MEDS: THIAMINE HCL 100 MG TABLET PO (10:00)
[2024-02-09] MEDS: PANTOPRAZOLE SODIUM IV 40 MG VIAL IV PUSH ×2 (10:00→20:58)
[2024-02-09 11:49] LABS: Glucose Point of Care 119 mg/dl (65-105)
--- NOTE | 2024-02-09 15:03 | WPDGIPROGNO ---
Progress Note: A&P Assessment and Plan (1) Ketoacidosis due to acute alcohol intoxication: Code(s): E87.29 - Other acidosis; F10.929 - Alcohol use, unspecified with intoxication, unspecified Status: Acute Assessment and Plan: medical support in icu (2) Alcohol withdrawal: Qualifiers: Complication of substance-induced condition: with unspecified complication Qualified Code(s): F10.939 - Alcohol use, unspecified with withdrawal, unspecified Code(s): F10.939 - Alcohol use, unspecified with withdrawal, unspecified Status: Acute Assessment and Plan: s/p ativan management by saturator operator, also precedex ciwa protocol thiamine (3) ETOH abuse: Code(s): F10.10 - Alcohol abuse, uncomplicated Status: Acute (4) Abnormal LFTs: Code(s): R79.89 - Other specified abnormal findings of blood chemistry Status: Acute Assessment and Plan: alcoholic hepatitis monitor, nutrition support (5) Alcoholic hepatitis: Qualifiers: Ascites presence: without ascites Qualified Code(s): K70.10 - Alcoholic hepatitis without ascites Code(s): K70.10 - Alcoholic hepatitis without ascites Status: Acute (6) Hyponatremia: Code(s): E87.1 - Hypo-osmolality and hyponatremia Status: Acute (7) Electrolyte imbalance: Code(s): E87.8 - Other disorders of electrolyte and fluid balance, not elsewhere classified Status: Acute Assessment and Plan: repleting Subjective Date/time seen: 02/09/24 15:03 Interval history: she is resting, confused. RN reports poor appetite son at bedside Review of Systems Review of Systems: All systems reviewed & are unremarkable except as noted in HPI and below Exam Narrative: General: Pleasant female, in no acute distress HEENT:? Pupils equal and reactive, sclerae is icteric Neck:? Supple Respiratory:? Clear to auscultation bilaterally, no wheezing, Cardiac:? S1-S2 normal, regular rate and rhythm Abdomen:? Soft, nontender, nondistended, normoactive bowel sounds Extremities:? Left lower extremity bruising noted around the coelho area, no edema Neuro:? Patient is awake, alert, oriented x2, nonfocal, answers to questions appropriately and follows simple commands and all extremities. Upper extremity tremors noted Skin:? no rash Psych:? Depressed affect, normal mentation Objective Data Vital Signs Vital Signs: Vital Signs - 24 hr 02/08/24 16:00 02/08/24 16:00 02/08/24 16:00 Temperature 99 F Pulse Rate 105 H 106 H Pulse Rate [Bilateral Pedal (Dorsalis Pedis) Palpation] Pulse Rate [Monitor] 105 H Respiratory Rate 18 Blood Pressure 137/85 137/85 Pulse Oximetry 96 Oxygen Delivery Oxygen Flow Rate 02/08/24 17:20 02/08/24 19:47 02/08/24 19:47 Temperature Pulse Rate 116 H 128 H Pulse Rate [Bilateral Pedal (Dorsalis Pedis) Palpation] Pulse Rate [Monitor] Respiratory Rate 18 Blood Pressure 137/85 Pulse Oximetry Oxygen Delivery Oxygen Flow Rate 02/08/24 19:51 02/08/24 20:38 02/08/24 20:00 Temperature 97.2 F L Pulse Rate 128 H 122 H Pulse Rate [Bilateral Pedal (Dorsalis Pedis) Palpation] 128 H Pulse Rate [Monitor] Respiratory Rate 18 19 Blood Pressure 142/76 H 134/78 Pulse Oximetry 96 100 Oxygen Delivery Nasal Cannula Oxygen Flow Rate 2 02/09/24 00:00 02/09/24 00:00 02/09/24 04:00 Temperature Pulse Rate 114 H 112 H 112 H Pulse Rate [Bilateral Pedal (Dorsalis Pedis) Palpation] Pulse Rate [Monitor] Respiratory Rate 30 H Blood Pressure 134/78 Pulse Oximetry 99 Oxygen Delivery Oxygen Flow Rate 02/09/24 04:00 02/09/24 08:00 02/09/24 12:00 Temperature 98.8 F 99.1 F 99.5 F Pulse Rate 112 H 113 H 121 H Pulse Rate [Bilateral Pedal (Dorsalis Pedis) Palpation] Pulse Rate [Monitor] Respiratory Rate 23 H 22 H 28 H Blood Pressure 110/58 L 132/86 128/70 Pulse Oximetry 96 99 100 Oxygen De
[2024-02-09 15:49] LABS: Alpha-1-Antitrypsin, QN 66 mg/dL (83-199); Ceruloplasmin 16 mg/dL (14-48)
--- NOTE | 2024-02-09 16:08 | PM.IMPN ---
Progress Note: A&P Assessment and Plan (1) Alcohol withdrawal: Qualifiers: Complication of substance-induced condition: with unspecified complication Qualified Code(s): F10.939 - Alcohol use, unspecified with withdrawal, unspecified Code(s): F10.939 - Alcohol use, unspecified with withdrawal, unspecified Status: Acute Assessment and Plan: Patient has recently been drinking more because of a break-up of 25 years. Last alcohol drink was 3 days ago Continue CIWA protocol. -continue thiamine, folic acid and maintenance IV fluids -coags are within normal limits -CK levels are normal (2) Ketoacidosis due to acute alcohol intoxication: Code(s): E87.29 - Other acidosis; F10.929 - Alcohol use, unspecified with intoxication, unspecified Status: Acute Assessment and Plan: Ketoacidosis likely related to alcohol intoxication/abuse contiue IVF encourage oral intake (3) Electrolyte imbalance: Code(s): E87.8 - Other disorders of electrolyte and fluid balance, not elsewhere classified Status: Acute Assessment and Plan: Hypokalemia, replaced, monitor and replace appropriately Hypomagnesia, replaced, monitor and replace appropriately Hyperphosphatemia, replaced, monitor and replace appropriately (4) Transaminitis: Code(s): R74.01 - Elevation of levels of liver transaminase levels Status: Acute Assessment and Plan: Elevated LFTs and bilirubin likely related to alcohol abuse, hemoconcentration due to hypovolemia -patient received adequate amount of IV fluids LFTs are trending down, bilirubin improving -likely related to alcoholic hepatitis -GI was consulted on admission -02/06: CT scan of the abdomen and pelvis showed fatty infiltration of the liver, fullness of the renal pelvis bilaterally more on the left side, no definitive ureteric stone seen. Thickening of the wall of the ascending and transverse colon which may indicate colitis. Small sliding hiatal hernia. (5) Suicidal ideations: Code(s): R45.851 - Suicidal ideations Status: Acute Assessment and Plan: After reviewing the records patient was suicidal at the primary care doctor's office on 02/07/2024 and also in the H and P she was noted to have suicidal ideations. -patient not suicidal at this time -will start suicidal precautions -bedside sitter -Psych consulted (6) Depression: Qualifiers: Depression Type: reactive depression Qualified Code(s): F32.9 - Major depressive disorder, single episode, unspecified Code(s): F32.A - Depression, unspecified Status: Acute Assessment and Plan: Patient on sertraline at home, also propanolol Will restart once LFTs improve (7) Colitis: Code(s): K52.9 - Noninfective gastroenteritis and colitis, unspecified Status: Acute Assessment and Plan: CT abd showed showed thickening of the traverse and ascending colon Levaquin and Flagyl x 5 days blood culture (8) Thrombocytopenia: Code(s): D69.6 - Thrombocytopenia, unspecified Status: Acute Assessment and Plan: Plts 74 monitor Likely from alcoholism (9) Abdominal pain: Code(s): R10.9 - Unspecified abdominal pain Status: Acute Assessment and Plan: Abd pain worse with FOod ?PUD Gi consulted continue Protonix 40 bid Plan DVT prophylaxis: SCDs no chemoprophylaxis secondary to thrombocytopenia Stress ulcer prophylaxis: Protonix Nutrition: Clear liquid diet, advance as tolerated Code Status: Full code This dictation may have been done utilizing a voice recognition system. Attempts have been made to correct errors. However, there may be uncorrected grammatical, spelling, and recognitions errors present. Subjective Date/time seen: 02/09/24 16:08 Interval history: patient comfortable, alert and oriented x2, having some hallucincations Review of Systems Review of Systems:
[2024-02-09 17:56] LABS: Glucose Point of Care 108 mg/dl (65-105)
[2024-02-10] VITALS (23 sets, daily range): BP systolic 107–150; BP diastolic 71–111; PULSE 77–205; RESP 20–27; TEMP 36.6–37.4; O2SAT 86–100
--- NOTE | 2024-02-10 | ECHO_ITS ---
Patient Info Name: Eli Dominguez Age: 74 years : 1950 Gender: Female Ht: 60 in Wt: 128 lbs BSA: 1.58 m2 HR: 104 bpm BP: 150 / 93 mmHg Heart Rhythm: Sinus Rhythm, Tachycardia Technical Quality: Fair Exam Date: 02/10/2024 10:54 AM Exam Location: Echo Lab Patient Status: Outpatient Admit Date: 02/07/2024 Staff Ordering Physician: Jcarlos Brunson MD Fraud Prevention Analyst: Roscoe Power RDCS Attending Provider: Tori Murray MD Exam Type: CA echo doppler color flow Study Info Indications - rhythm change Complete two-dimensional, color flow and Doppler transthoracic echocardiogram is performed. Summary 1. Complete two-dimensional, color flow and Doppler transthoracic echocardiogram is performed. 2. Technically challenging echocardiogram. 3. Normal, hyperdynamic appearing left ventricular systolic function. 4. No significant valvular disease identified. 5. Sinus tachycardia. Left Ventricle Left ventricular chamber dimension is normal. Left ventricular systolic function is hyperdynamic, estimated at >70%. The left ventricular diastolic function is grade I diastolic dysfunction. Right Ventricle Right ventricular chamber dimension is normal. Left Atria Left atrial chamber dimension is normal. Right Atria Right atrial chamber dimension is normal. Aortic Valve The aortic valve is normal. Pulmonic Valve The pulmonic valve is not well visualized. Mitral Valve The mitral valve has normal leaflets. Tricuspid Valve The tricuspid valve leaflets are not well visualized. Pericardium/Pleural The pericardium appears normal. Aorta The aortic root size at the sinus of Valsalva is normal. Left Ventricular Outflow Tract Name Value Normal LVOT 2D LVOT Diameter 1.8 cm LVOT Doppler LVOT Peak Gradient 4 mmHg LVOT Mean Gradient 2 mmHg LVOT VTI 12 cm LVOT VTI/AV VTI Ratio 0.7 LVOT Stroke Volume 31 ml LVOT CO 3.5 l/min LVOT CI 2.2 l/min/m2 Pulmonic Valve Name Value Normal PV Doppler PV Peak Gradient 3 mmHg Mitral Valve Name Value Normal MV Doppler MV Peak Gradient 4 mmHg MV Mean Gradient 2 mmHg MV Decel [place] 1,443 cm/s2 MV PHT 17 ms MV Area (PHT) 13.3 cm2 4.0-5.0 MV Area (Cont Eq VTI) 3.2 cm2 MV Diastolic Function MV E P
[2024-02-10] MEDS: SODIUM CHLORIDE 0.9% IV 1,000 ML 100 ML IV CONT ×2 (01:57→17:10)
[2024-02-10 03:28] LABS: GGT 559 U/L (3-65)
[2024-02-10 03:46] LABS: Basophils Percent Auto 0.6 % (0.2-1.2); Eosinophils Absolute Auto 0.2 K/mm3 (0-0.3); Eosinophils Percent Auto 4.8 % (0-4.4); Hematocrit 30.2 % (37.0-47.0); Hemoglobin 10.3 g/dL (12.0-15.0); Immature Granulocyte Absolute 0.01 K/mm3 (0.00-0.031); Immature Granulocyte Percent A 0.3 % (0-0.5); Immature Platelet Fraction Pct 7.3 % (0.9-11.2); Lymphocytes Absolute Auto 0.93 K/mm3 (0.9-3.2); Lymphocytes Percent Auto 26.3 % (18.3-44.2); Mean Corpuscular HGB Conc 34.1 g/dl (32-36); Mean Corpuscular Hemoglobin 36.3 pg (26-34); Mean Corpuscular Volume 106.3 fl (80-100); Mean Platelet Volume 10.9 fl (7.4-10.4); Monocytes Absolute Auto 0.3 K/mm3 (0.1-0.6); Monocytes Percent Auto 7.4 % (2.6-8.5); Neutrophils Absolute Auto 2.1 K/mm3 (1.3-6.7); Neutrophils Percent Auto 60.6 % (45.5-73.1); Platelet Count Result 74 k/mm3 (150-375); Red Blood Count 2.84 M/mm3 (4.2-5.4); Red Cell Distribution Width 13.4 % (11.5-14.5); White Blood Count 3.5 K/mm3 (4.5-10.0)
[2024-02-10 03:54] LABS: Alanine Aminotransferase 31 U/L (6-35); Albumin Level 2.8 g/dL (3.5-5.1); Alkaline Phosphatase 80 U/L (38-126); Anion Gap 5 mmol/L (4-12); Aspartate Amino Transferase 85 U/L (14-36); Bilirubin,Total 3.6 mg/dL (0.2-1.3); Calcium 7.8 mg/dL (8.4-10.2); Carbon Dioxide 27 mmol/L (22-30); Chloride 104 mmol/L (98-107); Estimated CRCL calculation 70 ml/min; Estimated Glomerular Filt Rate > 60; Glucose 99 mg/dL (65-110); Magnesium 1.7 mg/dL (1.6-2.3); Potassium 3.3 mmol/L (3.4-5.0); Sodium 136 mmol/L (137-145)
[2024-02-10 03:55] LABS: Blood Urea Nitrogen < 2 mg/dL (7-17)
[2024-02-10 04:14] LABS: Platelet Estimate Decreased (Adequate); Polychromasia 1+; Schistocytes None Seen
[2024-02-10] MEDS: chlordiazePOXIDE (*CRX) 25 MG CAPSULE 50 MG PO (06:29)
[2024-02-10] MEDS: metroNIDAZOLE 500 MG/ISO 100ML 500 MG/100 ML BAG 100 MG IVPB ×3 (09:00→21:01)
[2024-02-10] MEDS: PANTOPRAZOLE SODIUM IV 40 MG VIAL IV PUSH ×2 (09:21→21:01)
[2024-02-10] MEDS: THIAMINE HCL 100 MG TABLET PO (09:21)
--- NOTE | 2024-02-10 09:50 | ECG_ITS ---
Test Date: 2024-02-10 09:54:54 Measurements Intervals [place] Rate: 205 P: 0 SC: 0 QRS: 66 QRSD: 66 T: 256 QT: 187 QTc: 346 Interpretive Statements ATRIAL FIBRILLATION WITH RAPID VENTRICULAR RESPONSE SEPTAL MYOCARDIAL INFARCTION [40+ ms Q WAVE IN V1/V2], PROBABLY OLD ST DEPRESSION, CONSIDER SUBENDOCARDIAL INJURY [0.1+ mV ST DEPRESSION] INTERPRETATION BASED ON A DEFAULT AGE OF 40 YEARS Compared to ECG 02/07/2024 23:23:02 no change Electronically Signed On 02-11-2024 13:32:35 CDT by Wagner Silver M.D.
--- NOTE | 2024-02-10 10:00 | ECG_ITS ---
Test Date: 2024-02-10 10:11:09 Measurements Intervals [place] Rate: P: 0 MD: 0 QRS: 66 QRSD: 68 T: 0 QT: 184 QTc: 338 Interpretive Statements ATRIAL FIBRILLATION WITH RAPID VENTRICULAR RESPONSE WITH ABERRANT CONDUCTION OR VENTRICULAR PREMATURE COMPLEXES SEPTAL MYOCARDIAL INFARCTION [40+ ms Q WAVE IN V1/V2], PROBABLY OLD ST DEPRESSION, CONSIDER SUBENDOCARDIAL INJURY [0.1+ mV ST DEPRESSION] INTERPRETATION BASED ON A DEFAULT AGE OF 40 YEARS Compared to ECG 02/10/2024 09:54:54 no change Electronically Signed On 02-11-2024 13:33:12 CDT by Wagner Silver M.D.
[2024-02-10 10:27] LABS: Anion Gap 7 mmol/L (4-12); Carbon Dioxide 28 mmol/L (22-30); Chloride 100 mmol/L (98-107); Estimated CRCL calculation 57 ml/min; Estimated Glomerular Filt Rate > 60; Glucose 105 mg/dL (65-110); Magnesium 1.5 mg/dL (1.6-2.3); Phosphorus 2.7 mg/dL (2.5-4.5); Potassium 3.2 mmol/L (3.4-5.0); Sodium 135 mmol/L (137-145)
[2024-02-10 10:31] LABS: Blood Urea Nitrogen < 2 mg/dL (7-17)
[2024-02-10] MEDS: dilTIAZem 100 MG/100 ML 100 MG/100 ML BAG IV CONT (11:04)
[2024-02-10] MEDS: dilTIAZem HCl INJ 25 MG/5 ML VIAL IV PUSH (11:04)
[2024-02-10] MEDS: levoFLOXacin 750 MG/D5W 150 ML 750 MG/150 ML BAG 100 MG IVPB (11:05)
[2024-02-10 11:18] LABS: Troponin I < 0.012 ng/mL (0.000-0.034)
[2024-02-10] MEDS: METOPROLOL TARTRATE 25 MG TABLET PO ×2 (12:58→21:01)
[2024-02-10] MEDS: POTASSIUM CHLORIDE 20 MEQ ER TABLET 40 MEQ PO (12:58)
[2024-02-10] MEDS: MAGNESIUM SULFATE 3GM/D5W100ML 3 GM/100 ML BAG IVPB (12:58)
[2024-02-10] MEDS: POTASSIUM CHLORIDE INJ 40 MEQ in SODIUM CHLORIDE 0.9% IV 500 ML 130 MEQ IVPB (12:59)
--- NOTE | 2024-02-10 13:09 | PM.IMPN ---
Progress Note: A&P Assessment and Plan (1) Alcohol withdrawal: Qualifiers: Complication of substance-induced condition: with unspecified complication Qualified Code(s): F10.939 - Alcohol use, unspecified with withdrawal, unspecified Code(s): F10.939 - Alcohol use, unspecified with withdrawal, unspecified Status: Acute Assessment and Plan: Patient has recently been drinking more because of a break-up of 25 years. Last alcohol drink was 3 days ago Continue CIWA protocol. -continue thiamine, folic acid and maintenance IV fluids -coags are within normal limits -CK levels are normal (2) Ketoacidosis due to acute alcohol intoxication: Code(s): E87.29 - Other acidosis; F10.929 - Alcohol use, unspecified with intoxication, unspecified Status: Acute Assessment and Plan: Ketoacidosis likely related to alcohol intoxication/abuse contiue IVF encourage oral intake (3) Electrolyte imbalance: Code(s): E87.8 - Other disorders of electrolyte and fluid balance, not elsewhere classified Status: Acute Assessment and Plan: Hypokalemia, replaced, monitor and replace appropriately Hypomagnesia, replaced, monitor and replace appropriately Hyperphosphatemia, replaced, monitor and replace appropriately (4) Transaminitis: Code(s): R74.01 - Elevation of levels of liver transaminase levels Status: Acute Assessment and Plan: Elevated LFTs and bilirubin likely related to alcohol abuse, hemoconcentration due to hypovolemia -patient received adequate amount of IV fluids LFTs are trending down, bilirubin improving -likely related to alcoholic hepatitis -GI was consulted on admission -02/06: CT scan of the abdomen and pelvis showed fatty infiltration of the liver, fullness of the renal pelvis bilaterally more on the left side, no definitive ureteric stone seen. Thickening of the wall of the ascending and transverse colon which may indicate colitis. Small sliding hiatal hernia. (5) Suicidal ideations: Code(s): R45.851 - Suicidal ideations Status: Acute Assessment and Plan: After reviewing the records patient was suicidal at the primary care doctor's office on 02/07/2024 and also in the H and P she was noted to have suicidal ideations. -patient not suicidal at this time -will start suicidal precautions -bedside sitter -Psych consulted (6) Depression: Qualifiers: Depression Type: reactive depression Qualified Code(s): F32.9 - Major depressive disorder, single episode, unspecified Code(s): F32.A - Depression, unspecified Status: Acute Assessment and Plan: Patient on sertraline at home, also propanolol Will restart once LFTs improve (7) Colitis: Code(s): K52.9 - Noninfective gastroenteritis and colitis, unspecified Status: Acute Assessment and Plan: CT abd showed showed thickening of the traverse and ascending colon Levaquin and Flagyl x 5 days blood culture (8) Thrombocytopenia: Code(s): D69.6 - Thrombocytopenia, unspecified Status: Acute Assessment and Plan: Plts 74 monitor Likely from alcoholism (9) Abdominal pain: Code(s): R10.9 - Unspecified abdominal pain Status: Acute Assessment and Plan: Abd pain worse with FOod ?PUD Gi consulted continue Protonix 40 bid (10) Atrial fibrillation with RVR: Code(s): I48.91 - Unspecified atrial fibrillation Status: Acute Assessment and Plan: EKG reviewed Start Metoprolol, Cardizem infusion and titrate off as appropriate ECHO, Troponin, TSH with reflext, repeat Mg and CMP cardiology consulted [id number] score 3, holding AC due to thrombocytopenia Plan DVT prophylaxis: SCDs no chemoprophylaxis secondary to thrombocytopenia Stress ulcer prophylaxis: Protonix Nutrition: Clear liquid diet, advance as tolerated Code Status: Full code This dictation may have been
--- NOTE | 2024-02-10 13:35 | WPDGIPROGNO ---
Progress Note: A&P Assessment and Plan (1) Ketoacidosis due to acute alcohol intoxication: Code(s): E87.29 - Other acidosis; F10.929 - Alcohol use, unspecified with intoxication, unspecified Status: Acute Assessment and Plan: medical support in icu liver enzymes trending down from alcoholic hepatitis and starvation will follow as needed (2) Alcohol withdrawal: Qualifiers: Complication of substance-induced condition: with unspecified complication Qualified Code(s): F10.939 - Alcohol use, unspecified with withdrawal, unspecified Code(s): F10.939 - Alcohol use, unspecified with withdrawal, unspecified Status: Acute Assessment and Plan: s/p ativan and librium as needed management by finance accounting internship carlos protocol thiamine (3) Alcoholic hepatitis: Qualifiers: Ascites presence: without ascites Qualified Code(s): K70.10 - Alcoholic hepatitis without ascites Code(s): K70.10 - Alcoholic hepatitis without ascites Status: Acute Assessment and Plan: medical support (4) Abnormal LFTs: Code(s): R79.89 - Other specified abnormal findings of blood chemistry Status: Acute Assessment and Plan: alcoholic hepatitis monitor, nutrition support, encourage to eat (5) Electrolyte imbalance: Code(s): E87.8 - Other disorders of electrolyte and fluid balance, not elsewhere classified Status: Acute Assessment and Plan: repleting (6) Atrial fibrillation with RVR: Code(s): I48.91 - Unspecified atrial fibrillation Status: Acute Assessment and Plan: on diltiazem gtt (7) ETOH abuse: Code(s): F10.10 - Alcohol abuse, uncomplicated Status: Acute Subjective Date/time seen: 02/10/24 13:35 Interval history: still drowsy, resting sitter at bedside Review of Systems Review of Systems: All systems reviewed & are unremarkable except as noted in HPI and below Exam Narrative: General: Pleasant female, in no acute distress HEENT:? Pupils equal and reactive, sclerae is icteric Neck:? Supple Respiratory:? Clear to auscultation bilaterally, no wheezing, Cardiac:? arrhythmia Abdomen:? Soft, nontender, nondistended, normoactive bowel sounds Extremities:? Left lower extremity bruising noted around the coelho area, no edema Neuro:? Patient is awake, alert but confused Skin:? no rash Psych:? Depressed affect Objective Data Vital Signs Vital Signs: Vital Signs - 24 hr 02/09/24 16:00 02/09/24 16:00 02/09/24 16:00 Temperature 99.1 F Pulse Rate 118 H 119 H Pulse Rate [Bilateral Pedal (Dorsalis Pedis) Palpation] 116 H Pulse Rate [Monitor] Respiratory Rate 18 Blood Pressure 137/79 Pulse Oximetry 100 Oxygen Delivery Fraction of Inspired Oxygen 02/09/24 20:00 02/09/24 20:00 02/09/24 20:00 Temperature 99.3 F Pulse Rate 108 H 108 H Pulse Rate [Bilateral Pedal (Dorsalis Pedis) Palpation] Pulse Rate [Monitor] Respiratory Rate 24 H Blood Pressure 139/78 Pulse Oximetry 100 Oxygen Delivery Room Air Fraction of Inspired Oxygen 02/09/24 23:44 02/10/24 00:00 02/10/24 04:00 Temperature 98.9 F Pulse Rate 106 H 112 H 110 H Pulse Rate [Bilateral Pedal (Dorsalis Pedis) Palpation] Pulse Rate [Monitor] Respiratory Rate 20 Blood Pressure 151/88 H Pulse Oximetry 100 Oxygen Delivery Fraction of Inspired Oxygen 02/10/24 04:00 02/10/24 09:16 02/10/24 08:00 Temperature 99.0 F 97.8 F Pulse Rate 110 H 109 H Pulse Rate [Bilateral Pedal (Dorsalis Pedis) Palpation] Pulse Rate [Monitor] Respiratory Rate 23 H 20 Blood Pressure 147/89 H 146/93 H Pulse Oximetry 99 100 100 Oxygen Delivery Room Air Fraction of Inspired Oxygen 21 02/10/24 08:00 02/10/24 08:00 02/10/24 09:51 Temperature 99.3 F Pulse Rate 114 H 104 H Pulse Rate [Bilateral Pedal (Dorsalis Pedis) Palpation] Pulse Rate [Monitor] 114 H Respiratory Rate 2
[2024-02-10 13:45] LABS: Ammonia < 9 umol/L (9-30)
[2024-02-10 14:27] LABS: Glucose Point of Care 102 mg/dl (65-105)
[2024-02-10 17:00] LABS: Glucose Point of Care 92 mg/dl (65-105)
[2024-02-11] VITALS (27 sets, daily range): BP systolic 105–154; BP diastolic 67–92; PULSE 73–94; RESP 16–26; TEMP 37.6–38.6; O2SAT 98–100; BMI 10.0
[2024-02-11 00:08] LABS: Glucose Point of Care 93 mg/dl (65-105)
[2024-02-11] MEDS: chlordiazePOXIDE (*CRX) 25 MG CAPSULE 50 MG PO (01:25)
[2024-02-11] MEDS: SODIUM CHLORIDE 0.9% IV 1,000 ML 100 ML IV CONT (03:46)
[2024-02-11] MEDS: dilTIAZem 100 MG/100 ML 100 MG/100 ML BAG IV CONT ×2 (03:48→23:43)
[2024-02-11 04:16] LABS: Basophils Percent Auto 0.5 % (0.2-1.2); Eosinophils Absolute Auto 0.1 K/mm3 (0-0.3); Eosinophils Percent Auto 1.2 % (0-4.4); Hematocrit 35.2 % (37.0-47.0); Hemoglobin 11.7 g/dL (12.0-15.0); Immature Granulocyte Absolute 0.01 K/mm3 (0.00-0.031); Immature Granulocyte Percent A 0.2 % (0-0.5); Immature Platelet Fraction Pct 7.3 % (0.9-11.2); Mean Corpuscular HGB Conc 33.2 g/dl (32-36); Mean Corpuscular Hemoglobin 35.2 pg (26-34); Mean Platelet Volume 10.3 fl (7.4-10.4); Monocytes Absolute Auto 0.5 K/mm3 (0.1-0.6); Monocytes Percent Auto 12.6 % (2.6-8.5); Neutrophils Absolute Auto 2.8 K/mm3 (1.3-6.7); Neutrophils Percent Auto 66.5 % (45.5-73.1); Platelet Count Result 91 k/mm3 (150-375); Red Blood Count 3.32 M/mm3 (4.2-5.4); Red Cell Distribution Width 13.1 % (11.5-14.5); White Blood Count 4.2 K/mm3 (4.5-10.0)
[2024-02-11 04:30] LABS: Alanine Aminotransferase 32 U/L (6-35); Albumin Level 3.1 g/dL (3.5-5.1); Alkaline Phosphatase 91 U/L (38-126); Anion Gap 9 mmol/L (4-12); Aspartate Amino Transferase 89 U/L (14-36); Bilirubin,Total 2.7 mg/dL (0.2-1.3); Calcium 8.5 mg/dL (8.4-10.2); Carbon Dioxide 26 mmol/L (22-30); Chloride 98 mmol/L (98-107); Estimated CRCL calculation 70 ml/min; Estimated Glomerular Filt Rate > 60; Glucose 119 mg/dL (65-110); Magnesium 1.7 mg/dL (1.6-2.3); Potassium 4.2 mmol/L (3.4-5.0); Sodium 133 mmol/L (137-145)
[2024-02-11 04:34] LABS: Lactic Acid Reflex 1.3 mmol/L (0.7-2.0)
[2024-02-11 04:47] LABS: Anisocytosis 1+; Hypochromasia 1+; Platelet Estimate Decreased (Adequate); Schistocytes None Seen
[2024-02-11 05:04] LABS: Blood Urea Nitrogen < 2 mg/dL (7-17)
[2024-02-11] MEDS: metroNIDAZOLE 500 MG/ISO 100ML 500 MG/100 ML BAG 100 MG IVPB ×3 (05:27→21:34)
--- NOTE | 2024-02-11 07:37 | PM.CNCAR ---
Assessment and Plan Assessment and plan (1) Atrial fibrillation: Code(s): I48.91 - Unspecified atrial fibrillation Status: Acute Plan Paroxysmal AFib in the setting of alcohol intoxication. Currently in sinus rhythm Elevated liver enzymes Thrombocytopenia Plan DC diltiazem Continue metoprolol 25 mg b.i.d. History of Present Illness History of Present Illness Consult date/time: 02/11/24 07:37 Reason For Visit: ETOH WD/Hyponatremia/Hypomagnesemia/Hyperbili/Dehy Narrative: 74-year-old female patient presented to the hospital with altered mental status secondary to alcohol abuse. Patient is more history current give any detailed history about her current presentation. She denies any current symptoms. She is being treated for alcohol withdrawal he has been receiving sedation medications. She was noted to have sinus tachycardia on presentation. And during admissions to noted to have atrial fibrillation with RVR this converted back to sinus rhythm. She has elevated liver enzymes and thrombocytopenia the believed to secondary to alcohol. 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) History of total right hip replacement (01/2019) Family History Family History Father Lung cancer Mother Diabetes mellitus Hypertension Sibling Hypertension Social History Social History Smoking status: Former smoker Additional smoking assessment comments: DENIES ANY FORM OF TOBACCO USE Alcohol intake: current Drinks per week: 10 Substance use: unknown Do You Feel Safe in your Home?: Yes Lack of Transportation: No Lack of Food: Never True Current Housing: I Have Housing Concerned About Future Housing: No Difficulty Paying Gas/Electric Bills: No Difficulty Paying for Meds: No Currently Unemployed: No Education: High School Diploma/GED Difficulty w/ Childcare or Family Care: No Living arrangements: alone Spiritual care concerns: No Meds Home Medications and Allergies Home Medications Medication Instructions Recorded Confirmed Type ibandronate 150 mg tablet See Rx Instructions .Route 12/21/23 02/07/24 Rx .COMPLEX #3 tabs propranolol 160 mg capsule,24 160 mg PO DAILY #90 caps 01/24/24 02/07/24 Rx hr,extended release sertraline 50 mg tablet 50 mg PO QHS #30 tabs 02/07/24 02/07/24 Rx Allergies Allergy/AdvReac Type Severity Reaction Status Date / Time cats AdvReac Unknown Difficulty Uncoded 02/07/24 13:11 Breathing Vital Signs Vital Signs - 24 hr 02/10/24 09:16 02/10/24 08:00 02/10/24 08:00 Temperature 36.6 C Pulse Rate 109 H 114 H Pulse Rate [Monitor] Respiratory Rate 20 Blood Pressure 146/93 H Pulse Oximetry 100 100 Oxygen Delivery Room Air Fraction of Inspired Oxygen 21 02/10/24 08:00 02/10/24 09:51 02/10/24 11:04 Temperature 37.4 C Pulse Rate 104 H 123 H Pulse Rate [Monitor] 114 H Respiratory Rate 27 H Blood Pressure 150/93 H Pulse Oximetry 100 Oxygen Delivery Fraction of Inspired Oxygen 02/10/24 10:00 02/10/24 10:15 02/10/24 11:08 Temperature 37.4 C Pulse Rate 109 H 205 H 108 H Pulse Rate [Monitor] Respiratory Rate 26 H 23 H 27 H Blood Pressure 150/93 H 147/111 H 138/91 H Pulse Oximetry 100 100 Oxygen Delivery Fraction of Inspired Oxygen 02/10/24 11:21 02/10/24 12:00 02/10/24 12:26 Temperature Pulse Rate 121 H 106 H Pulse Rate [Monitor] Respiratory Rate Blood Pressure 138/88 121/79 Pulse Oximetry Oxygen
[2024-02-11] MEDS: PANTOPRAZOLE SODIUM IV 40 MG VIAL IV PUSH ×2 (08:30→20:40)
[2024-02-11] MEDS: METOPROLOL TARTRATE 25 MG TABLET PO ×2 (08:30→20:40)
[2024-02-11] MEDS: levoFLOXacin 750 MG/D5W 150 ML 750 MG/150 ML BAG 100 MG IVPB (08:31)
[2024-02-11] MEDS: THIAMINE HCL 100 MG TABLET PO (08:31)
[2024-02-11 13:04] LABS: Glucose Point of Care 117 mg/dl (65-105)
--- NOTE | 2024-02-11 14:44 | PM.IMPN ---
Progress Note: A&P Assessment and Plan (1) Alcohol withdrawal: Qualifiers: Complication of substance-induced condition: with unspecified complication Qualified Code(s): F10.939 - Alcohol use, unspecified with withdrawal, unspecified Code(s): F10.939 - Alcohol use, unspecified with withdrawal, unspecified Status: Acute Assessment and Plan: Patient has recently been drinking more because of a break-up of 25 years. Last alcohol drink was 3 days ago Continue CIWA protocol. -continue thiamine, folic acid and maintenance IV fluids -coags are within normal limits -CK levels are normal (2) Ketoacidosis due to acute alcohol intoxication: Code(s): E87.29 - Other acidosis; F10.929 - Alcohol use, unspecified with intoxication, unspecified Status: Acute Assessment and Plan: Ketoacidosis likely related to alcohol intoxication/abuse contiue IVF encourage oral intake (3) Electrolyte imbalance: Code(s): E87.8 - Other disorders of electrolyte and fluid balance, not elsewhere classified Status: Acute Assessment and Plan: Hypokalemia, replaced, monitor and replace appropriately Hypomagnesia, replaced, monitor and replace appropriately Hyperphosphatemia, replaced, monitor and replace appropriately (4) Transaminitis: Code(s): R74.01 - Elevation of levels of liver transaminase levels Status: Acute Assessment and Plan: Elevated LFTs and bilirubin likely related to alcohol abuse, hemoconcentration due to hypovolemia -patient received adequate amount of IV fluids LFTs are trending down, bilirubin improving -likely related to alcoholic hepatitis -GI was consulted on admission -02/06: CT scan of the abdomen and pelvis showed fatty infiltration of the liver, fullness of the renal pelvis bilaterally more on the left side, no definitive ureteric stone seen. Thickening of the wall of the ascending and transverse colon which may indicate colitis. Small sliding hiatal hernia. (5) Suicidal ideations: Code(s): R45.851 - Suicidal ideations Status: Acute Assessment and Plan: After reviewing the records patient was suicidal at the primary care doctor's office on 02/07/2024 and also in the H and P she was noted to have suicidal ideations. -patient not suicidal at this time -will start suicidal precautions -bedside sitter -Psych consulted (6) Depression: Qualifiers: Depression Type: reactive depression Qualified Code(s): F32.9 - Major depressive disorder, single episode, unspecified Code(s): F32.A - Depression, unspecified Status: Acute Assessment and Plan: Patient on sertraline at home, also propanolol Will restart once LFTs improve (7) Colitis: Code(s): K52.9 - Noninfective gastroenteritis and colitis, unspecified Status: Acute Assessment and Plan: CT abd showed showed thickening of the traverse and ascending colon Levaquin and Flagyl x 5 days blood culture (8) Thrombocytopenia: Code(s): D69.6 - Thrombocytopenia, unspecified Status: Acute Assessment and Plan: Plts 91 monitor Likely from alcoholism (9) Abdominal pain: Code(s): R10.9 - Unspecified abdominal pain Status: Acute Assessment and Plan: Abd pain worse with FOod ?PUD Gi consulted continue Protonix 40 bid (10) Atrial fibrillation with RVR: Code(s): I48.91 - Unspecified atrial fibrillation Status: Acute Assessment and Plan: Now in NSR S/p Cardizem infusion, continue Metoprolol ECHO pending , Troponin negative , TSH wnl cardiology eval noted [id number] score 3, holding AC due to thrombocytopenia Plan DVT prophylaxis: SCDs no chemoprophylaxis secondary to thrombocytopenia Stress ulcer prophylaxis: Protonix Nutrition: Clear liquid diet, advance as tolerated Code Status: Full code This dictation may have been done utilizing a voice recognition s
[2024-02-11] MEDS: SODIUM CHLORIDE 0.9% IV 1,000 ML 50 ML IV CONT (16:25)
[2024-02-11] MEDS: IBUPROFEN 400 MG TABLET PO (18:02)
[2024-02-11 18:27] LABS: Glucose Point of Care 118 mg/dl (65-105)
[2024-02-11 18:37] LABS: Add Urine Microscopic? YES; Appearance Urine Clear (Clear); Bacteria Urine None Seen /hpf; Bilirubin Urine 1+ (Negative); Blood Urine Negative (Negative); Color Urine Dark Yellow (Yellow); Glucose Urine UA Negative (Negative); Ketones Urine Trace mg/dL (Negative); Leukocyte Esterase Ur 1+ LEU/UL (Negative); Nitrate Urine Negative (Negative); Non Pathogenic Casts 0-2; Protein Urine Trace mg/dL (Negative); RBC Urine 0-2 /hpf (0-2); Specific Grav Ur 1.015 (1.001-1.035); Squamous Epithelial Cell Urine None Seen /hpf (Few)
[2024-02-11 19:26] LABS: Lactic Acid Reflex 2.1 mmol/L (0.7-2.0)
[2024-02-11 22:14] LABS: Reflex Lactic Acid Yes or No Add Lactic
[2024-02-11 23:03] LABS: Lactic Acid 1.5 mmol/L (0.7-2.0)
[2024-02-12] VITALS (20 sets, daily range): BP systolic 95–118; BP diastolic 55–92; PULSE 74–98; RESP 16–22; TEMP 36.4–37.3; O2SAT 97–100
[2024-02-12 04:20] LABS: Hematocrit 33.8 % (37.0-47.0); Hemoglobin 10.6 g/dL (12.0-15.0); Mean Corpuscular HGB Conc 31.4 g/dl (32-36); Mean Corpuscular Hemoglobin 36.6 pg (26-34); Mean Corpuscular Volume 116.6 fl (80-100); Platelet Count Result 87 k/mm3 (150-375); Red Cell Distribution Width 13.9 % (11.5-14.5); White Blood Count 4.8 K/mm3 (4.5-10.0)
[2024-02-12 04:35] LABS: Lymphocytes Absolute Manual 1.53 K/mm3 (1.1-4.5); Monocytes Absolute Manual 0.28 K/mm3 (0.1-0.90); Monocytes Percent Manual 6 % (3-9); Neutrophils Percent Manual 62 % (46-73); Total Cells Counted 100
[2024-02-12 04:36] LABS: Platelet Estimate Decreased (Adequate)
[2024-02-12 04:38] LABS: Anisocytosis 1+; Hypochromasia 1+; Ovalocytes 1+; Schistocytes None Seen
[2024-02-12 04:39] LABS: Alanine Aminotransferase 21 U/L (6-35); Albumin Level 2.6 g/dL (3.5-5.1); Alkaline Phosphatase 69 U/L (38-126); Anion Gap 8 mmol/L (4-12); Aspartate Amino Transferase 52 U/L (14-36); Bilirubin,Total 2.6 mg/dL (0.2-1.3); Blood Urea Nitrogen 5 mg/dL (7-17); Calcium 8.4 mg/dL (8.4-10.2); Carbon Dioxide 22 mmol/L (22-30); Chloride 103 mmol/L (98-107); Estimated CRCL calculation 70 ml/min; Estimated Glomerular Filt Rate > 60; Glucose 99 mg/dL (65-110); Magnesium 1.7 mg/dL (1.6-2.3); Potassium 4.3 mmol/L (3.4-5.0); Sodium 133 mmol/L (137-145)
[2024-02-12] MEDS: metroNIDAZOLE 500 MG/ISO 100ML 500 MG/100 ML BAG 100 MG IVPB (05:06)
--- NOTE | 2024-02-12 07:50 | PM.PNCARD ---
Progress Note: A&P Assessment and Plan (1) Atrial fibrillation with RVR: Code(s): I48.91 - Unspecified atrial fibrillation Status: Acute Plan 74-year-old lady with AFib/RVR in the setting of alcohol intoxication withdrawal. She is on metoprolol and maintaining sinus rhythm. No further cardiac recommendations to make at this time. The patient should not be anticoagulated in my opinion because of alcoholism. Bob Medina MD [facility] Subjective Date/time seen: Date of service: 02/12/24 07:50 Interval history: Follow-up visit in this 74-year-old woman with atrial fibrillation with RVR in the setting of withdrawal from alcohol intoxication. Patient is sleeping when I entered the room to see her upon awakening she is angry and argumentative Exam Const: Other: White female appearing her stated age who is angry and argumentative. HENMT: Mouth: Yes moist mucous membranes Eyes: Sclera: sclerae normal Neck: Neck: supple Resp: Effort & Inspection: normal respiratory effort Auscultation: clear to auscultation bilaterally Cardio: Rate: regular rate Rhythm: regular rhythm GI: GI Palp: Yes Soft to palpation Auscultation: normal bowel sounds Skin: General skin exam: normal color Extrem: General: normal to inspection Objective Data Vital Signs Vital Signs: Vital Signs - 24 hr 02/11/24 08:00 02/11/24 08:30 02/11/24 08:00 Temperature 37.6 C H Pulse Rate 89 88 88 Pulse Rate [Monitor] Respiratory Rate 16 Blood Pressure 127/84 127/84 Pulse Oximetry 100 Oxygen Delivery 02/11/24 08:00 02/11/24 10:00 02/11/24 09:00 Temperature Pulse Rate 91 83 Pulse Rate [Monitor] 91 Respiratory Rate Blood Pressure Pulse Oximetry Oxygen Delivery 02/11/24 09:00 02/11/24 10:00 02/11/24 11:00 Temperature Pulse Rate 85 79 79 Pulse Rate [Monitor] Respiratory Rate Blood Pressure 135/89 110/82 107/76 Pulse Oximetry Oxygen Delivery 02/11/24 12:00 02/11/24 12:00 02/11/24 13:09 Temperature 38.2 C H Pulse Rate 79 85 Pulse Rate [Monitor] Respiratory Rate 22 H Blood Pressure 108/75 108/75 Pulse Oximetry 100 Oxygen Delivery Room Air 02/11/24 13:00 02/11/24 12:00 02/11/24 14:00 Temperature Pulse Rate 81 83 Pulse Rate [Monitor] 94 Respiratory Rate Blood Pressure Pulse Oximetry Oxygen Delivery 02/11/24 14:00 02/11/24 16:00 02/11/24 16:00 Temperature 37.9 C H Pulse Rate 83 88 88 Pulse Rate [Monitor] Respiratory Rate 23 H Blood Pressure 114/69 121/88 121/88 Pulse Oximetry 100 Oxygen Delivery 02/11/24 17:27 02/11/24 17:00 02/11/24 16:00 Temperature Pulse Rate 89 87 Pulse Rate [Monitor] 91 Respiratory Rate Blood Pressure 130/81 Pulse Oximetry Oxygen Delivery 02/11/24 18:02 02/11/24 18:00 02/11/24 18:18 Temperature 38.3 C H Pulse Rate 91 90 Pulse Rate [Monitor] Respiratory Rate Blood Pressure 108/74 Pulse Oximetry Oxygen Delivery 02/11/24 19:02 02/11/24 20:00 02/11/24 20:00 Temperature 38.6 C H 38.3 C H Pulse Rate 92 92 Pulse Rate [Monitor] Respiratory Rate 26 H Blood Pressure 105/79 Pulse Oximetry 100 Oxygen Delivery 02/11/24 20:00 02/11/24 20:40 02/11/24 20:00 Temperature Pulse Rate 92 90 Pulse Rate [Monitor] Respiratory Rate Blood Pressure 105/79 Pulse Oximetry Oxygen Delivery Room Air 02/11/24 22:00 02/11/24 22:01 02/11/24 23:43 Temperature Pulse Rate 88 88 73 Pulse Rate [Monitor] Respiratory Rate Blood Pressure 121/76 Pulse Oximetry Oxygen Delivery 02/11/24 23:43 02/12/24 00:00 02/12/24 00:00 Temperature 36.8 C Pulse Rate 73 75 75 Pulse Rate [Monitor] Respiratory Rate 19 Blood Pressure 106/67 99/55 L Pulse Oximetry 98 Oxygen Delivery 02/12/24 00:00 02/12/24 02:00 02/12/24 02:12 Temperature Pulse Rate 74 74 Pulse Rate [Monitor]
[2024-02-12] MEDS: THIAMINE HCL 100 MG TABLET PO (08:42)
[2024-02-12] MEDS: METOPROLOL TARTRATE 25 MG TABLET PO ×2 (08:42→21:05)
[2024-02-12] MEDS: levoFLOXacin 750 MG/D5W 150 ML 750 MG/150 ML BAG 100 MG IVPB (08:42)
[2024-02-12] MEDS: PANTOPRAZOLE SODIUM IV 40 MG VIAL IV PUSH ×2 (08:43→21:05)
--- NOTE | 2024-02-12 11:49 | PM.IMPN ---
Progress Note: A&P Assessment and Plan (1) Alcohol withdrawal: Qualifiers: Complication of substance-induced condition: with unspecified complication Qualified Code(s): F10.939 - Alcohol use, unspecified with withdrawal, unspecified Code(s): F10.939 - Alcohol use, unspecified with withdrawal, unspecified Status: Acute Assessment and Plan: Patient has recently been drinking more because of a break-up of 25 years. Last alcohol drink was 3 days ago Continue CIWA protocol. -continue thiamine, folic acid and maintenance IV fluids -coags are within normal limits -CK levels are normal (2) Ketoacidosis due to acute alcohol intoxication: Code(s): E87.29 - Other acidosis; F10.929 - Alcohol use, unspecified with intoxication, unspecified Status: Acute Assessment and Plan: Ketoacidosis likely related to alcohol intoxication/abuse contiue IVF encourage oral intake (3) Electrolyte imbalance: Code(s): E87.8 - Other disorders of electrolyte and fluid balance, not elsewhere classified Status: Acute Assessment and Plan: Hypokalemia, replaced, monitor and replace appropriately Hypomagnesia, replaced, monitor and replace appropriately Hyperphosphatemia, replaced, monitor and replace appropriately (4) Transaminitis: Code(s): R74.01 - Elevation of levels of liver transaminase levels Status: Acute Assessment and Plan: Elevated LFTs and bilirubin likely related to alcohol abuse, hemoconcentration due to hypovolemia -patient received adequate amount of IV fluids LFTs are trending down, bilirubin improving -likely related to alcoholic hepatitis -GI was consulted on admission -02/06: CT scan of the abdomen and pelvis showed fatty infiltration of the liver, fullness of the renal pelvis bilaterally more on the left side, no definitive ureteric stone seen. Thickening of the wall of the ascending and transverse colon which may indicate colitis. Small sliding hiatal hernia. (5) Suicidal ideations: Code(s): R45.851 - Suicidal ideations Status: Acute Assessment and Plan: After reviewing the records patient was suicidal at the primary care doctor's office on 02/07/2024 and also in the H and P she was noted to have suicidal ideations. -patient not suicidal at this time - per psych patient has signed a safety contract and can come off suicidal precaution -thus bedside sitter not needed -Psych consulted (6) Depression: Qualifiers: Depression Type: reactive depression Qualified Code(s): F32.9 - Major depressive disorder, single episode, unspecified Code(s): F32.A - Depression, unspecified Status: Acute Assessment and Plan: Patient on sertraline at home, also propanolol Will restart once LFTs improve (7) Colitis: Code(s): K52.9 - Noninfective gastroenteritis and colitis, unspecified Status: Acute Assessment and Plan: CT abd showed showed thickening of the traverse and ascending colon Levaquin and Flagyl x 7 days blood culture (8) Thrombocytopenia: Code(s): D69.6 - Thrombocytopenia, unspecified Status: Acute Assessment and Plan: Plts 91 monitor Likely from alcoholism (9) Abdominal pain: Code(s): R10.9 - Unspecified abdominal pain Status: Acute Assessment and Plan: Abd pain worse with FOod ?PUD Gi consulted continue Protonix 40 bid (10) Atrial fibrillation with RVR: Code(s): I48.91 - Unspecified atrial fibrillation Status: Acute Assessment and Plan: Now in NSR S/p Cardizem infusion, continue Metoprolol ECHO pending , Troponin negative , TSH wnl cardiology eval noted [id number] score 3, holding AC due to thrombocytopenia cardiology stated no anticoagulation due to alcoholism Plan DVT prophylaxis: SCDs no chemoprophylaxis secondary to thrombocytopenia Stress ulcer prophylaxis: Protonix Nutrition: Clear liqui
[2024-02-12 11:55] LABS: Glucose Point of Care 94 mg/dl (65-105)
[2024-02-12] MEDS: SODIUM CHLORIDE 0.9% IV 1,000 ML 50 ML IV CONT (13:23)
[2024-02-12] MEDS: metroNIDAZOLE 500 MG TABLET PO ×2 (14:23→21:05)
[2024-02-13] VITALS (10 sets, daily range): BP systolic 111–141; BP diastolic 65–95; PULSE 88–93; RESP 16–19; TEMP 36.6–37.6; O2SAT 94–100
[2024-02-13 05:01] LABS: Basophils Percent Auto 0.6 % (0.2-1.2); Eosinophils Absolute Auto 0.2 K/mm3 (0-0.3); Eosinophils Percent Auto 4.3 % (0-4.4); Hematocrit 31.2 % (37.0-47.0); Hemoglobin 10.6 g/dL (12.0-15.0); Immature Granulocyte Absolute 0.02 K/mm3 (0.00-0.031); Immature Granulocyte Percent A 0.6 % (0-0.5); Immature Platelet Fraction Pct 7.1 % (0.9-11.2); Lymphocytes Absolute Auto 1.03 K/mm3 (0.9-3.2); Lymphocytes Percent Auto 29.8 % (18.3-44.2); Mean Corpuscular Hemoglobin 36.4 pg (26-34); Mean Corpuscular Volume 107.2 fl (80-100); Mean Platelet Volume 10.8 fl (7.4-10.4); Monocytes Absolute Auto 0.7 K/mm3 (0.1-0.6); Monocytes Percent Auto 18.8 % (2.6-8.5); Neutrophils Absolute Auto 1.6 K/mm3 (1.3-6.7); Neutrophils Percent Auto 45.9 % (45.5-73.1); Platelet Count Result 113 k/mm3 (150-375); Red Blood Count 2.91 M/mm3 (4.2-5.4); Red Cell Distribution Width 13.5 % (11.5-14.5); White Blood Count 3.5 K/mm3 (4.5-10.0)
[2024-02-13 05:09] LABS: Alanine Aminotransferase 20 U/L (6-35); Albumin Level 2.7 g/dL (3.5-5.1); Alkaline Phosphatase 92 U/L (38-126); Anion Gap 6 mmol/L (4-12); Aspartate Amino Transferase 40 U/L (14-36); Bilirubin,Total 1.9 mg/dL (0.2-1.3); Blood Urea Nitrogen 6 mg/dL (7-17); Calcium 8.8 mg/dL (8.4-10.2); Carbon Dioxide 25 mmol/L (22-30); Chloride 102 mmol/L (98-107); Estimated CRCL calculation 57 ml/min; Estimated Glomerular Filt Rate > 60; Glucose 98 mg/dL (65-110); Magnesium 1.4 mg/dL (1.6-2.3); Potassium 3.8 mmol/L (3.4-5.0); Sodium 133 mmol/L (137-145)
[2024-02-13] MEDS: metroNIDAZOLE 500 MG TABLET PO ×3 (05:10→21:04)
[2024-02-13 05:40] LABS: Ovalocytes 1+; Platelet Estimate Decreased (Adequate)
[2024-02-13 05:41] LABS: Schistocytes None Seen; Tear Drop Cells 1+
[2024-02-13] MEDS: SODIUM CHLORIDE 0.9% IV 1,000 ML 50 ML IV CONT (09:02)
[2024-02-13] MEDS: levoFLOXacin 750 MG TABLET PO (09:03)
[2024-02-13] MEDS: METOPROLOL TARTRATE 25 MG TABLET PO ×2 (09:03→21:04)
[2024-02-13] MEDS: PANTOPRAZOLE SODIUM IV 40 MG VIAL IV PUSH ×2 (09:03→21:04)
[2024-02-13] MEDS: THIAMINE HCL 100 MG TABLET PO (09:03)
[2024-02-13] MEDS: MAGNESIUM SULF 2 GM/WATER 50ML 2 GM/50 ML BAG IVPB (11:28)
--- NOTE | 2024-02-13 11:51 | WPDCDIQUERY2 ---
CDI Query Clarification Request Risk Factors: pulse ox stable on RA except for 02/12 at midnight (94%). Clinical Indicators: 02/09 CXR shows mild atelectasis, CXR 02/10 Worsened airspace opacities in left lower lung zone, consistent with atelectasis versus pneumonia. Treatment: pt on IV levaquin for colitits If able please clarify and correlate clinically CXR findings of atelectasis vs pneumonia.
[2024-02-13] MEDS: ONDANSETRON INJ 4 MG/2 ML VIAL IV PUSH (16:59)
--- NOTE | 2024-02-13 18:19 | PM.IMPN ---
Progress Note: A&P Assessment and Plan (1) Alcohol withdrawal: Qualifiers: Complication of substance-induced condition: with unspecified complication Qualified Code(s): F10.939 - Alcohol use, unspecified with withdrawal, unspecified Code(s): F10.939 - Alcohol use, unspecified with withdrawal, unspecified Status: Acute Assessment and Plan: Patient has recently been drinking more because of a break-up of 25 years. Last alcohol drink was 4 days ago Pending transfer to floor No ativan received in last 24 hours Continue CIWA protocol. -continue thiamine, folic acid and maintenance IV fluids -coags are within normal limits -CK levels are normal (2) Ketoacidosis due to acute alcohol intoxication: Code(s): E87.29 - Other acidosis; F10.929 - Alcohol use, unspecified with intoxication, unspecified Status: Acute Assessment and Plan: Ketoacidosis likely related to alcohol intoxication/abuse contiue IVF encourage oral intake (3) Electrolyte imbalance: Code(s): E87.8 - Other disorders of electrolyte and fluid balance, not elsewhere classified Status: Acute Assessment and Plan: Hypokalemia, replaced, monitor and replace appropriately Hypomagnesia, replaced, monitor and replace appropriately Hyperphosphatemia, replaced, monitor and replace appropriately (4) Transaminitis: Code(s): R74.01 - Elevation of levels of liver transaminase levels Status: Acute Assessment and Plan: Elevated LFTs and bilirubin likely related to alcohol abuse, hemoconcentration due to hypovolemia -patient received adequate amount of IV fluids LFTs are trending down, bilirubin improving -likely related to alcoholic hepatitis -GI was consulted on admission -02/06: CT scan of the abdomen and pelvis showed fatty infiltration of the liver, fullness of the renal pelvis bilaterally more on the left side, no definitive ureteric stone seen. Thickening of the wall of the ascending and transverse colon which may indicate colitis. Small sliding hiatal hernia. (5) Suicidal ideations: Code(s): R45.851 - Suicidal ideations Status: Acute Assessment and Plan: After reviewing the records patient was suicidal at the primary care doctor's office on 02/07/2024 and also in the H and P she was noted to have suicidal ideations. -patient not suicidal at this time - per psych patient has signed a safety contract and can come off suicidal precaution -thus bedside sitter not needed -Psych consulted (6) Depression: Qualifiers: Depression Type: reactive depression Qualified Code(s): F32.9 - Major depressive disorder, single episode, unspecified Code(s): F32.A - Depression, unspecified Status: Acute Assessment and Plan: Patient on sertraline at home, also propanolol Will restart once LFTs improve (7) Colitis: Code(s): K52.9 - Noninfective gastroenteritis and colitis, unspecified Status: Acute Assessment and Plan: CT abd showed showed thickening of the traverse and ascending colon Levaquin and Flagyl x 7 days blood culture (8) Thrombocytopenia: Code(s): D69.6 - Thrombocytopenia, unspecified Status: Acute Assessment and Plan: Plts 91 monitor Likely from alcoholism (9) Abdominal pain: Code(s): R10.9 - Unspecified abdominal pain Status: Acute Assessment and Plan: Abd pain worse with FOod ?PUD Gi consulted continue Protonix 40 bid (10) Atrial fibrillation with RVR: Code(s): I48.91 - Unspecified atrial fibrillation Status: Acute Assessment and Plan: Now in NSR S/p Cardizem infusion, continue Metoprolol ECHO pending , Troponin negative , TSH wnl cardiology eval noted [id number] score 3, holding AC due to thrombocytopenia cardiology stated no anticoagulation due to alcoholism Plan DVT prophylaxis: SCDs no chemoprophylaxis secondary to thrombocytopen
--- NOTE | 2024-02-14 00:47 | PC.NURSE ---
This patient, Eli Dominguez, was received from ICU 11 on 02/14/24 at 0048. Patient/family oriented to unit policies and routines
--- NOTE | 2024-02-14 00:49 | PC.NURSE ---
This patient, Eli Dominguez, was transferred to [facility] on 02/14/24 at 0045. Personal belongings sent with patient. Report given to LUCAS Ramírez. Appropriate documentation sent with patient.
[2024-02-14] MEDS: SODIUM CHLORIDE 0.9% IV 1,000 ML 50 ML IV CONT (03:53)
[2024-02-14 05:05] VITALS: BP 136/77; PULSE 81; RESP 16; TEMP 36.6; O2SAT 95
[2024-02-14] MEDS: metroNIDAZOLE 500 MG TABLET PO ×3 (06:23→20:22)
[2024-02-14 06:58] LABS: Basophils Percent Auto 0.7 % (0.2-1.2); Eosinophils Absolute Auto 0.1 K/mm3 (0-0.3); Eosinophils Percent Auto 4.6 % (0-4.4); Hematocrit 30.7 % (37.0-47.0); Hemoglobin 10.2 g/dL (12.0-15.0); Immature Granulocyte Absolute 0.01 K/mm3 (0.00-0.031); Immature Granulocyte Percent A 0.4 % (0-0.5); Lymphocytes Absolute Auto 0.76 K/mm3 (0.9-3.2); Lymphocytes Percent Auto 26.9 % (18.3-44.2); Mean Corpuscular HGB Conc 33.2 g/dl (32-36); Mean Corpuscular Hemoglobin 35.5 pg (26-34); Mean Platelet Volume 10.4 fl (7.4-10.4); Monocytes Absolute Auto 0.7 K/mm3 (0.1-0.6); Monocytes Percent Auto 25.4 % (2.6-8.5); Neutrophils Absolute Auto 1.2 K/mm3 (1.3-6.7); Platelet Count Result 150 k/mm3 (150-375); Red Blood Count 2.87 M/mm3 (4.2-5.4); Red Cell Distribution Width 13.5 % (11.5-14.5); White Blood Count 2.8 K/mm3 (4.5-10.0)
[2024-02-14 07:14] LABS: Alanine Aminotransferase 16 U/L (6-35); Albumin Level 2.7 g/dL (3.5-5.1); Alkaline Phosphatase 84 U/L (38-126); Anion Gap 4 mmol/L (4-12); Aspartate Amino Transferase 37 U/L (14-36); Bilirubin,Total 1.5 mg/dL (0.2-1.3); Blood Urea Nitrogen 4 mg/dL (7-17); Calcium 8.4 mg/dL (8.4-10.2); Carbon Dioxide 29 mmol/L (22-30); Chloride 103 mmol/L (98-107); Estimated CRCL calculation 64 ml/min; Estimated Glomerular Filt Rate > 60; Glucose 95 mg/dL (65-110); Potassium 3.8 mmol/L (3.4-5.0); Sodium 136 mmol/L (137-145)
[2024-02-14 07:59] LABS: Macrocytosis 1+ (NORMAL); Platelet Estimate Adequate (Adequate); Schistocytes None Seen
[2024-02-14] MEDS: THIAMINE HCL 100 MG TABLET PO (09:13)
[2024-02-14] MEDS: levoFLOXacin 750 MG TABLET PO (09:13)
[2024-02-14] MEDS: PANTOPRAZOLE SODIUM IV 40 MG VIAL IV PUSH (09:13)
[2024-02-14] MEDS: METOPROLOL TARTRATE 25 MG TABLET PO ×2 (09:13→20:22)
[2024-02-14 10:27] VITALS: BMI 25.4
[2024-02-14 10:47] VITALS: BMI 25.4
[2024-02-14 11:06] VITALS: BMI 25.4
--- NOTE | 2024-02-14 11:07 | PM.IMPN ---
Progress Note: A&P Assessment and Plan (1) Alcohol withdrawal: Qualifiers: Complication of substance-induced condition: with unspecified complication Qualified Code(s): F10.939 - Alcohol use, unspecified with withdrawal, unspecified Code(s): F10.939 - Alcohol use, unspecified with withdrawal, unspecified Status: Acute Assessment and Plan: Patient has recently been drinking more because of a break-up of 25 years. Last alcohol drink was 8/ CIWA score has trended down and now no longer being monitored. Ativan has been stopped Continue thiamine, folic acid She was educated about the benefits of abstaining from alcohol use (2) Ketoacidosis due to acute alcohol intoxication: Code(s): E87.29 - Other acidosis; F10.929 - Alcohol use, unspecified with intoxication, unspecified Status: Acute Assessment and Plan: Ketoacidosis likely related to alcohol intoxication/abuse Lactic acid normal now. (3) Electrolyte imbalance: Code(s): E87.8 - Other disorders of electrolyte and fluid balance, not elsewhere classified Status: Acute Assessment and Plan: Hypokalemia noted and potassium replaced. Hypomagnesia noted and replaced Hyperphosphatemia noted and replaced Monitor and replace appropriately (4) Transaminitis: Code(s): R74.01 - Elevation of levels of liver transaminase levels Status: Acute Assessment and Plan: Elevated LFTs and bilirubin likely related to alcoholic hepatitis and starvation 02/06: CT scan of the abdomen and pelvis showed fatty infiltration of the liver, fullness of the renal pelvis bilaterally more on the left side, no definitive ureteric stone seen. Thickening of the wall of the ascending and transverse colon which may indicate colitis. Small sliding hiatal hernia. GI was consulted on admission and appreciate their input. Patient received adequate amount of IV fluids ALT normal and AST trending down, bilirubin improved as well (5) Suicidal ideations: Code(s): R45.851 - Suicidal ideations Status: Acute Assessment and Plan: Patient was noted to have suicidal ideations at the primary care doctor's office on 02/07/2024 and also in the H and P. Patient not suicidal at this time Patient has signed a safety contract and was taken off suicidal precaution Will have hre3 follow with psychiatry after discharge (6) Depression: Qualifiers: Depression Type: reactive depression Qualified Code(s): F32.9 - Major depressive disorder, single episode, unspecified Code(s): F32.A - Depression, unspecified Status: Acute Assessment and Plan: Patient was only on propranolol on admission. Defer to psychiatry to start anti-depressant therapy. (7) Colitis: Code(s): K52.9 - Noninfective gastroenteritis and colitis, unspecified Status: Acute Assessment and Plan: CT abd showed showed thickening of the traverse and ascending colon concerning for colitis BCx NGTD Levaquin and Flagyl x 7 days (8) Thrombocytopenia: Code(s): D69.6 - Thrombocytopenia, unspecified Status: Acute Assessment and Plan: Platelet count dropped to 74K felt related to hepatitis and from alcholism. Platelet count has normalized Follow (9) Abdominal pain: Code(s): R10.9 - Unspecified abdominal pain Status: Acute Assessment and Plan: CT as above. Abd pain probably related to colitis and/or hepatitis GI was consulted. Encouraged her to eat. Continue Protonix (10) Atrial fibrillation with RVR: Code(s): I48.91 - Unspecified atrial fibrillation Status: Acute Assessment and Plan: Patient found to have AFib with RVR. Treated with Cardizem infusion and then Metoprolol ECHO showing EF >70% with Grade I diastolic dysfunction. TSH wnl Cardiology consulted and appreciate their input [id number] score 3, holding AC due to thro
[2024-02-14 14:47] VITALS: BP 111/57; PULSE 87; RESP 16; TEMP 36.4; O2SAT 100
[2024-02-14 21:37] VITALS: BP 134/77; PULSE 97; RESP 16; TEMP 36.8; O2SAT 99
[2024-02-15] MEDS: ONDANSETRON INJ 4 MG/2 ML VIAL IV PUSH (00:38)
[2024-02-15] MEDS: metroNIDAZOLE 500 MG TABLET PO ×2 (05:00→14:45)
[2024-02-15 06:01] VITALS: BP 112/50; PULSE 87; RESP 20; TEMP 36.6; O2SAT 98
[2024-02-15 06:43] LABS: Basophils Percent Auto 0.9 % (0.2-1.2); Eosinophils Absolute Auto 0.1 K/mm3 (0-0.3); Eosinophils Percent Auto 3.1 % (0-4.4); Hematocrit 28.8 % (37.0-47.0); Hemoglobin 9.7 g/dL (12.0-15.0); Immature Granulocyte Absolute 0.01 K/mm3 (0.00-0.031); Immature Granulocyte Percent A 0.3 % (0-0.5); Lymphocytes Absolute Auto 1.06 K/mm3 (0.9-3.2); Lymphocytes Percent Auto 32.7 % (18.3-44.2); Mean Corpuscular HGB Conc 33.7 g/dl (32-36); Mean Corpuscular Hemoglobin 36.1 pg (26-34); Mean Corpuscular Volume 107.1 fl (80-100); Mean Platelet Volume 10.1 fl (7.4-10.4); Monocytes Absolute Auto 0.8 K/mm3 (0.1-0.6); Monocytes Percent Auto 24.4 % (2.6-8.5); Neutrophils Absolute Auto 1.3 K/mm3 (1.3-6.7); Neutrophils Percent Auto 38.6 % (45.5-73.1); Platelet Count Result 154 k/mm3 (150-375); Red Blood Count 2.69 M/mm3 (4.2-5.4); Red Cell Distribution Width 13.5 % (11.5-14.5); White Blood Count 3.2 K/mm3 (4.5-10.0)
[2024-02-15 06:56] LABS: Albumin Level 2.6 g/dL (3.5-5.1); Anion Gap 6 mmol/L (4-12); Blood Urea Nitrogen 4 mg/dL (7-17); Calcium 8.6 mg/dL (8.4-10.2); Carbon Dioxide 28 mmol/L (22-30); Chloride 102 mmol/L (98-107); Estimated CRCL calculation 57 ml/min; Estimated Glomerular Filt Rate > 60; Glucose 93 mg/dL (65-110); Magnesium 1.5 mg/dL (1.6-2.3); Phosphorus 4.1 mg/dL (2.5-4.5); Potassium 3.5 mmol/L (3.4-5.0); Sodium 136 mmol/L (137-145)
[2024-02-15 07:29] LABS: Anisocytosis 1+; Platelet Estimate Adequate (Adequate); Schistocytes None Seen
[2024-02-15 08:00] VITALS: BP 103/63; PULSE 71; RESP 20; TEMP 36.6; O2SAT 96
[2024-02-15 10:19] VITALS: PULSE 70
[2024-02-15] MEDS: METOPROLOL TARTRATE 25 MG TABLET PO (10:19)
[2024-02-15] MEDS: THIAMINE HCL 100 MG TABLET PO (10:19)
[2024-02-15] MEDS: PANTOPRAZOLE 40 MG TABLET PO (10:19)
[2024-02-15] MEDS: levoFLOXacin 750 MG TABLET PO (10:19)
[2024-02-15] MEDS: MAGNESIUM SULF 2 GM/WATER 50ML 2 GM/50 ML BAG IVPB (10:28)
[2024-02-15] MEDS: POTASSIUM CHLORIDE 20 MEQ ER TABLET PO (10:28)
--- NOTE | 2024-02-15 11:51 | PM.DS ---
DS: Admitting Diagnosis Discharge Date 02/15/24 Admitting Diagnosis Acute alcohol intoxication DS: Discharge Diagnosis Discharge Diagnosis (1) Alcohol withdrawal: Qualifiers: Complication of substance-induced condition: with unspecified complication Qualified Code(s): F10.939 - Alcohol use, unspecified with withdrawal, unspecified Code(s): F10.939 - Alcohol use, unspecified with withdrawal, unspecified Status: Acute (2) Ketoacidosis due to acute alcohol intoxication: Code(s): E87.29 - Other acidosis; F10.929 - Alcohol use, unspecified with intoxication, unspecified Status: Acute (3) Electrolyte imbalance: Code(s): E87.8 - Other disorders of electrolyte and fluid balance, not elsewhere classified Status: Acute (4) Transaminitis: Code(s): R74.01 - Elevation of levels of liver transaminase levels Status: Acute (5) Suicidal ideations: Code(s): R45.851 - Suicidal ideations Status: Acute (6) Depression: Qualifiers: Depression Type: reactive depression Qualified Code(s): F32.9 - Major depressive disorder, single episode, unspecified Code(s): F32.A - Depression, unspecified Status: Acute (7) Colitis: Code(s): K52.9 - Noninfective gastroenteritis and colitis, unspecified Status: Acute (8) Thrombocytopenia: Code(s): D69.6 - Thrombocytopenia, unspecified Status: Acute (9) Abdominal pain: Code(s): R10.9 - Unspecified abdominal pain Status: Acute (10) Atrial fibrillation with RVR: Code(s): I48.91 - Unspecified atrial fibrillation Status: Acute DS: Summary Hospital Course Reason for hospitalization: 74yo female with alcohol abuse, depression, 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 Please see H&P for details Hospital Course: Patient has recently been drinking more because of a break-up of 25 years. Last alcohol drink was 02/08. CIWA score has trended down and now no longer being monitored. Ativan was available but not requiring this so this was stopped. She was treated with thiamine, folic acid. She was educated about the benefits of abstaining from alcohol use. Ketoacidosis likely related to alcohol intoxication/abuse. Lactic acid normal now. Electrolyte abnormalitiesnoted and replaced. Patient found to have AFib with RVR. Treated with Cardizem infusion and then Metoprolol. ECHO showing EF >70% with Grade I diastolic dysfunction. TSH wnl. Cardiology consulted and appreciate their input. [id number] score 3, holding AC due to thrombocytopenia. Cardiology stated no anticoagulation due to alcoholism. Elevated LFTs and bilirubin likely related to alcoholic hepatitis and starvation. CT scan of the abdomen and pelvis showed fatty infiltration of the liver, fullness of the renal pelvis bilaterally more on the left side, no definitive ureteric stone seen. Thickening of the wall of the ascending and transverse colon which may indicate colitis. Small sliding hiatal hernia. GI was consulted on admission and appreciate their input. Patient received adequate amount of IV fluids. Leukopenia noted and felt related to hepatitis and alcohol. Abdominal US showing diffuse hepatic steatosis. Hepatitis panel was negative. Ammonia <9. CT brain showing no acute findings. ALT normal and AST trending down, bilirubin improved as well. BCx NGTD. Levaquin and Flagyl ordered for colitis to complete a 7 day course. Patient was noted to have suicidal ideations at the primary care doctor's office on 02/07/2024 and also in the H and P. Patient not suicidal at this time. Patient has signed a safety contract and was taken off suicidal precaution. Will have her follow with psychiatry after discharge. Defer to psychiatry to start anti-depressant therapy. Platelet count dropped to 74K felt related to hepatitis and from alcoholism. Platelet count has robin
--- NOTE | 2024-02-15 17:04 | PC.NURSE ---
On 02/15/24, the SUPPLY CHAIN MANAGER, DARLIN العلي, provided care and completed [employer] documentation on this patient. I have reviewed the SUPPLY CHAIN MANAGER's documentation and agree with the findings.
[2024-02-16 11:48] LABS: Actin Antibody (IgG) <20 U (<20)
[2024-02-16 13:35] LABS: ALT 27 U/L (6-29); Alpha-2-Macroglobulin 154 mg/dL (106-279); Apolipoprotein A1 152 mg/dL (101-198); Fibrosis Stage F4; GGT 582 U/L (3-65); Haptoglobin 104 mg/dL (43-212); Necroinflammat Act Grade A0-A1; Reference ID 5059227; Total Bilirubin 2.9 mg/dL (0.2-1.2)
--- NOTE | 2024-02-19 12:16 | PC.NURSE ---
Actin Ab IgG WNL at <20. TAINA is negative. Dr. Jamal zambrano.
[2024-02-19 13:07] LABS: Mitochondrial (M2) Ab (IgG) <20.0 U
--- NOTE | 2024-02-20 12:49 | PC.NURSE ---
Mitochondrial IgG is normal at <20.0. Dr. Jamal zambrano.
== END 2024-02-15 15:45 | DRG 897 ==
LOC: ANHED 14:21 → ANHIMU 18:33 → ANHICU 21:50 → ANH3MEDSUR 02-14 00:51
PROVIDERS: Internal Medicine; Nurse Practitioner; Nurse Practitioner Family; Admitting Provider Family Medicine; Emergency Provider Physician Assistant; PCP Family Medicine Adolescent Medicine; Visit Provider Internal Medicine
DX: F10.239 Alcohol dependence with withdrawal, unspecified (principal); E87.29 Other acidosis; M87.852 Other osteonecrosis, left femur; R45.851 Suicidal ideations; E87.1 Hypo-osmolality and hyponatremia; D61.818 Other pancytopenia; K70.10 Alcoholic hepatitis without ascites; K70.9 Alcoholic liver disease, unspecified; K76.0 Fatty (change of) liver, not elsewhere classified; Y90.5 Blood alcohol level of 100-119 mg/100 ml; D53.9 Nutritional anemia, unspecified; D69.6 Thrombocytopenia, unspecified; E83.42 Hypomagnesemia; E86.0 Dehydration; F32.A Depression, unspecified; F10.229 Alcohol dependence with intoxication, unspecified; I48.91 Unspecified atrial fibrillation; K44.9 Diaphragmatic hernia without obstruction or gangrene; K52.9 Noninfective gastroenteritis and colitis, unspecified; R74.01 Elevation of levels of liver transaminase levels; Z20.822 Contact with and (suspected) exposure to COVID-19; Z96.643 Presence of artificial hip joint, bilateral; Z86.010 Personal history of colon polyps; Z87.891 Personal history of nicotine dependence
CPT/HCPCS: 36415; 70450; 71045; 74177; 76705; 80048; 80053; 80069; 80074; 80307; 81001; 81003; 81596; 82103; 82140; 82390; 82550; 82607; 82746; 82948; 82977; 83520; 83540; 83550; 83605; 83690; 83735; 84100; 84443; 84484; 85025; 85055; 85610; 86038; 86039; 86364; 87040; 87086; 87637; 87641; 93005; 93306; 96361; 96365; 96366; 96367; 96368; 96375; 96376; 97110; 97162; 97166; 97530; 97535; 99285; A9270; G0378; J1836; J1956; J2060; J2405; J2470; J3411; J3475; J3480; J7030; J7040; J7120; Q9967

== ENCOUNTER 2024-04-01 11:42 | Outpatient (CLI) | payer MEDICARE, SELFPAY ==
--- NOTE | ~2024-04-01 | MM_ITS ---
EXAMINATION: MM scrn diamond implant BI w timoteo HISTORY: Screening mammogram TECHNIQUE: Craniocaudal and mediolateral oblique 3-D tomosynthesis images with implant displacement a nd synthetic 2-D images were generated. Craniocaudal and mediolateral oblique views of the breasts wi thout implant displacement were obtained using full field digital mammography. CAD analysis was submi tted and interpreted. COMPARISON: Comparison to multiple prior studies sequentially, with oldest reviewed study dated 12/15. BREAST PARENCHYMAL COMPOSITION: Not dense: There are scattered areas of fibroglandular density. FINDINGS: There is no evidence of suspicious mass, calcification, or architectural distortion to sugg est malignancy in either breast. There has been no suspicious interval change. IMPRESSION: 1. No mammographic evidence of malignancy. 2. Recommend routine screening mammography in one year. BI-RADS Category 1: Negative Reviewed, dictated and finalized at location B.
== END 2024-04-01 11:43 | disposition home or self-care (01) ==
PROVIDERS: PCP Family Medicine Adolescent Medicine; Visit Provider Family Medicine Adolescent Medicine
DX: Z12.31 Encounter for screening mammogram for malignant neoplasm of breast (principal)
CPT/HCPCS: 77063; 77067

== ENCOUNTER 2024-04-10 01:31 | Day surgery (SDC) | payer MEDICARE, SELFPAY ==
[2024-04-03 10:05] VITALS: BMI 22.4
[2024-04-10 08:41] VITALS: BP 155/75; PULSE 59; RESP 18; TEMP 36.4; O2SAT 100; BMI 22.0
[2024-04-10] MEDS: LACTATED RINGERS 1,000 ML 150 ML IV CONT (08:49)
--- NOTE | 2024-04-10 08:54 | WPDANESEPPF ---
Anes - Initial Pre Proc Eval Procedure: Operation Date: 04/10/24 10:00 Proposed Procedures p Esophagogastroduodenoscopy & Colonoscopy - Alonzo Anderson MD Date/Time: 04/10/24 08:54 Surgeon: Alonzo Anderson MD Pre Op Diagnosis: Cirrhosis, nutritional anemia, Abn. blood chem. Patient Data Age: 74 Gender: F Height: 1.52 m Weight: 51.2 kg Last Vital Signs Temp 36.4 C L 04/10/24 08:41 Pulse 59 L 04/10/24 08:41 Resp 18 04/10/24 08:41 BP 155/75 H 04/10/24 08:41 Pulse Ox 100 04/10/24 08:41 O2 Del Method Room Air 04/10/24 08:41 Allergies Allergy/AdvReac Type Severity Reaction Status Date / Time cats AdvReac Unknown Difficulty Uncoded 04/10/24 08:40 Breathing Home Medications Medication Instructions Recorded Confirmed Type primidone 50 mg tablet 25 mg PO QHS #90 tabs 03/13/24 04/10/24 Rx metoprolol tartrate 25 mg tablet See Rx Instructions .Route 04/02/24 04/10/24 Rx .COMPLEX #60 tabs sertraline 50 mg tablet 50 mg PO HS 04/03/24 04/10/24 History Patient hx anesthesia problems: none Family hx anesthesia problems: none Results Review: All pre-operative results and documents have been reviewed as part of the pre-operative evaluation. [facility] Past Medical History Medical History (Updated 04/10/24 @ 08:55 by Berlin Nogueira MD) Alcoholic hepatitis Anxiety Atrial fibrillation with RVR Depression Surgical History Surgical History History of hysterectomy (1987) History of partial surgical removal of colon (2000) Removed section of colon for Polyp History of total left hip replacement (12/2022) History of total right hip replacement (01/2019) Family History Family History Father Lung cancer Mother Diabetes mellitus Hypertension Sibling Hypertension Social History Social History Smoking status: Former smoker Additional smoking assessment comments: DENIES ANY FORM OF TOBACCO USE Alcohol intake: former Drinks per week: 30 Alcohol use details: quit feb 2024 Substance use: unknown Do You Feel Safe in your Home?: Yes Lack of Transportation: No Lack of Food: Never True Current Housing: I Have Housing Concerned About Future Housing: No Difficulty Paying Gas/Electric Bills: No Difficulty Paying for Meds: No Currently Unemployed: No Education: High School Diploma/GED Difficulty w/ Childcare or Family Care: No Living arrangements: alone Spiritual care concerns: No Anes - Eval Final PreProcedure Day of Procedure 04/10/24 08:54 Patient weight: normal Heart: regular rate and rhythm Lungs: clear to auscultation Airway: Mallampati scale class II Neurological: alert and oriented Last oral intake: >/= 8 hours ASA classification: III Emergent: no Anesthetic plan: proceed Anesthesia type and monitoring: general GIVS and standard monitoring Results Review: All pre-operative results and documents have been reviewed as part of the pre-operative evaluation. Informed Consent: The patient's anesthetic plan and its attendant risks and benefits were discussed with the patient/family/POA. Questions were solicited and answers provided to the satisfaction of the patient/family/POA.
--- NOTE | 2024-04-10 09:45 | PM.IMHP ---
H&P: HPI History of Present Illness Date/Time: 04/10/24 09:45 Chief Complaint: r/o esophageal varices (cirrhosis is suspected) - history of colonic polyps Narrative: The patient has recently been hospitalized for possible alcoholic hepatitis. There is a suspicion of cirrhosis, and she has been scheduled to rule out esophageal varices. She is asymptomatic from the GI standpoint. In addition, the patient has a history of colonic polyps and had a partial colonic resection apparently for diverticulosis. She is here now for colonoscopy and EGD. Review of Systems Review of Systems: All systems reviewed & are unremarkable except as noted in HPI and below PMFSH Past Medical History Medical History (Updated 04/10/24 @ 08:55 by Berlin Nogueira MD) Alcoholic hepatitis Anxiety Atrial fibrillation with RVR Depression Surgical History Surgical History History of hysterectomy (1987) History of partial surgical removal of colon (2000) Removed section of colon for Polyp History of total left hip replacement (12/2022) History of total right hip replacement (01/2019) Family History Family History Father Lung cancer Mother Diabetes mellitus Hypertension Sibling Hypertension Social History Social History Smoking status: Former smoker Additional smoking assessment comments: DENIES ANY FORM OF TOBACCO USE Alcohol intake: former Drinks per week: 30 Alcohol use details: quit feb 2024 Substance use: unknown Do You Feel Safe in your Home?: Yes Lack of Transportation: No Lack of Food: Never True Current Housing: I Have Housing Concerned About Future Housing: No Difficulty Paying Gas/Electric Bills: No Difficulty Paying for Meds: No Currently Unemployed: No Education: High School Diploma/GED Difficulty w/ Childcare or Family Care: No Living arrangements: alone Spiritual care concerns: No Meds Home Medications and Allergies Home Medications Medication Instructions Recorded Confirmed Type primidone 50 mg tablet 25 mg PO QHS #90 tabs 03/13/24 04/10/24 Rx metoprolol tartrate 25 mg tablet See Rx Instructions .Route 04/02/24 04/10/24 Rx .COMPLEX #60 tabs sertraline 50 mg tablet 50 mg PO HS 04/03/24 04/10/24 History Allergies Allergy/AdvReac Type Severity Reaction Status Date / Time cats AdvReac Unknown Difficulty Uncoded 04/10/24 08:40 Breathing Vital Signs Vital Signs - 24 hr 04/10/24 08:41 Temperature 97.5 F L Pulse Rate 59 L Respiratory Rate 18 Blood Pressure 155/75 H Pulse Oximetry 100 Oxygen Delivery Room Air Assessment and Plan Assessment and plan (1) Cirrhosis: Qualifiers: Hepatic cirrhosis type: alcoholic cirrhosis Code(s): K74.60 - Unspecified cirrhosis of liver Status: Acute Plan The patient is deemed a good candidate for EGD and colonoscopy. Will proceed.
[2024-04-10] MEDS: SIMETHICONE ORAL SUSPENSION 20 MG/0.3 ML 30 ML BOTTLE 0.6 ML IRRIGATION (09:56)
[2024-04-10 10:23] VITALS: BP 109/69; PULSE 58; RESP 19; O2SAT 100
--- NOTE | 2024-04-10 10:26 | SUR.OPER ---
EGD: Start 953, End 1000 Colonoscopy: Start 1007, End 1020
[2024-04-10 10:33] VITALS: BP 126/70; PULSE 63; RESP 16; O2SAT 100
[2024-04-10 10:43] VITALS: BP 129/87; PULSE 66; RESP 17; O2SAT 100
== END 2024-04-10 11:17 | disposition home or self-care (01) ==
PROVIDERS: PCP Family Medicine Adolescent Medicine; Referring Provider Nurse Practitioner Family; Visit Provider Internal Medicine Gastroenterology
PROC: 0DJ08ZZ Inspection of Upper Intestinal Tract, Via Natural or Artificial Opening Endoscopic (ICD-10-PCS; CPT 43235; principal; 2024-04-10 10:00)
DX: K29.50 Unspecified chronic gastritis without bleeding (principal); Z12.11 Encounter for screening for malignant neoplasm of colon; K64.1 Second degree hemorrhoids; Z98.0 Intestinal bypass and anastomosis status; Z90.49 Acquired absence of other specified parts of digestive tract; Z87.19 Personal history of other diseases of the digestive system; K70.10 Alcoholic hepatitis without ascites; K70.30 Alcoholic cirrhosis of liver without ascites; F41.9 Anxiety disorder, unspecified; F32.A Depression, unspecified; Z87.891 Personal history of nicotine dependence; Z86.0100 Personal history of colon polyps, unspecified
CPT/HCPCS: 43239; G0105; 88305; J2003; J2704; J7120

== ENCOUNTER → 2025-05-06 12:24 | Outpatient (CLI) | payer MEDICARE, SELFPAY ==
--- NOTE | ~2025-05-06 | XR_ITS ---
EXAMINATION: XR shoulder LT min 2V, 05/06/2025 12:35 EXCEPTIONAL NEEDS TEACHER HISTORY: M75.82 - Other shoulder lesions, left shoulder COMPARISON: No comparisons available. Findings: Severe osteopenia. Severe degenerative changes. Soft tissues unremarkable. Impression: No acute fracture or malalignment. Reviewed, dictated and finalized at location P. PTIONAL NEEDS TEACHER Impression: No acute fracture or malalignment.
== END ==
LOC: EXPCRAD 12:27
PROVIDERS: PCP Nurse Practitioner Family; Visit Provider Nurse Practitioner Family
DX: M85.80 Other specified disorders of bone density and structure, unspecified site (principal); M19.012 Primary osteoarthritis, left shoulder; M75.82 Other shoulder lesions, left shoulder
CPT/HCPCS: 73030

== ENCOUNTER 2025-07-01 13:27 | Outpatient (CLI) | payer MEDICARE, SELFPAY ==
--- NOTE | ~2025-07-01 | MM_ITS ---
EXAMINATION: MM scrn diamond implant BI w timoteo HISTORY: Screening TECHNIQUE: Craniocaudal and mediolateral oblique 3-D tomosynthesis images were obtained and synthetic 2-D images were generated. CAD analysis was submitted and interpreted. COMPARISON: 2023, 2022, and 2021 BREAST PARENCHYMAL COMPOSITION: The breast tissue is heterogeneously dense, which may obscure small masses. FINDINGS: There is/are bilateral retropectoral saline implants. The presence of implants decreases the sensitivity of mammography. There is an asymmetry at the superior anterior aspect of the left MLO view on the implant displaced images. There are biopsy markers bilaterally. There are no suspicious calcifications. No unexplained architectural distortion is seen. There are no skin or nipple abnormalities identified. There is no adenopathy seen on the images submitted. IMPRESSION: Asymmetry on the left for which additional imaging is recommended. BI-RADS 0 - Incomplete - needs additional imaging evaluation Reviewed, dictated and finalized at location C. STUD RIVETER
== END 2025-07-01 13:28 | disposition home or self-care (01) ==
LOC: MICIMG 13:28
PROVIDERS: PCP Nurse Practitioner Family; Visit Provider Nurse Practitioner Family
DX: Z12.31 Encounter for screening mammogram for malignant neoplasm of breast (principal); R92.8 Other abnormal and inconclusive findings on diagnostic imaging of breast; Z98.82 Breast implant status
CPT/HCPCS: 77063; 77067